=== PATIENT | female | born 1995 | race African-American/Black ===

== ENCOUNTER 2018-08-25 12:44 | Inpatient (IN) | payer MEDICAID ==
[~2018-08-25] VITALS: Ht 162.6 cm; Wt 56.8 kg
[~2018-08-25 12:44] MED LIST: LANTUS SOL100 UNIT/1 SC; NOVOLOG100 U/M1
[2018-08-25 13:43] LABS: BASOPHILS 0.3 % (0-2); EOSINOPHILS 0.1 % (0-7); HEMATOCRIT 37.7 % (36.0-48.0); HEMOGLOBIN 12.9 g/dL (12-16); IMMATURE GRANULOCYTES 0.2 % (0-5); LYMPHOCYTES 22.8 % (15-50); MCH 28.4 pg (26.0-34.0); MCHC 34.2 g/dL (31.0-37.0); MCV 82.9 fL (80.0-100.0); MEAN PLATELET VOLUME 9.5 fL (7.4-10.4); NEUTROPHILS 71.6 % (40-80); RBC 4.55 10x6/uL (4.00-5.40); RDW 12.5 % (11.5-14.5); WBC 9.1 10x3/uL (4.8-10.8)
[2018-08-25 13:57] LABS: KETONE - SERUM SMALL mg/dL (NEGATIVE)
[2018-08-25 13:59] LABS: HCG SERUM NEGATIVE (NEGATIVE)
[2018-08-25 14:00] LABS: APPEARANCE SL CLDY (CLEAR); BACTERIA FEW /hpf (NONE SEEN); BILIRUBIN NEGATIVE (NEGATIVE); COLOR YELLOW (YELLOW); EPITHELIAL CELLS 0-5 /hpf (0-5); GLUCOSE NEGATIVE (NEGATIVE); KETONE LARGE mg/dL (NEGATIVE); MUCUS <1+ /lpf (NONE SEEN); NITRITE NEGATIVE (NEGATIVE); PROTEIN 1+ mg/dL (NEGATIVE); SPECIFIC GRAVITY 1.015 (1.005-1.020); UROBILINOGEN NORMAL (NORMAL); WHITE CELLS - URINE 0-5 /hpf (0-5)
[2018-08-25 14:04] LABS: ALKALINE PHOSPHATASE 79 U/L (46-116); ALT (SGPT) 47 U/L (10-68); AMYLASE - SERUM 171 U/L (25-115); BILIRUBIN - TOTAL 0.97 mg/dL (0.2-1.3); CALCIUM 8.9 mg/dL (8.5-10.1); CARBON DIOXIDE 20.7 mmol/L (21.0-32.0); CHLORIDE - SERUM 102 mmol/L (98-107); CREATININE - SERUM 0.8 mg/dL (0.6-1.3); LIPASE 158 U/L (73-393); MAGNESIUM - SERUM 1.7 mg/dL (1.8-2.4); PROTEIN - SERUM 7.6 g/dL (6.4-8.2); SODIUM 141 mmol/L (136-145); UREA NITROGEN 17 mg/dL (7-18); eGFR NON AFRICAN AMERICAN > 90 mL/min (90-120)
[2018-08-25 14:05] LABS: PLATELET COUNT 341 10x3/uL (130-400)
[2018-08-25 14:07] LABS: CALC OSMOLALITY 286 mosm/kg (275-300); GLUCOSE 163 mg/dL (74-106)
[2018-08-25 14:08] LABS: POTASSIUM - SERUM 2.7 mmol/L (3.5-5.1)
[2018-08-25 14:21] VITALS: BP 115/72
[2018-08-25 15:17] VITALS: BP 110/71
--- NOTE | 2018-08-25 16:00 | NUR ---
" I FEEL ALOT BETTER" RESTING IN BED.
[2018-08-25 16:21] VITALS: BP 112/66
--- NOTE | 2018-08-25 17:17 | NUR ---
REPORT TO ALEXANDRA PALOMARES BY SBAR FORMAT
[2018-08-25 18:49] VITALS: BMI 21.5
[2018-08-25 20:13] LABS: UDS - AMPHET NEGATIVE QUAL (NEGATIVE); UDS - BARB NEGATIVE QUAL (NEGATIVE); UDS - BENZO NEGATIVE QUAL (NEGATIVE); UDS - COCAINE NEGATIVE QUAL (NEGATIVE); UDS - OPIATE POSITIVE QUAL (NEGATIVE); UDS - PCP NEGATIVE QUAL (NEGATIVE); UDS - THC POSITIVE QUAL (NEGATIVE)
--- NOTE | 2018-08-25 20:28 | NUR ---
PAGED DR FAJARDO D/T INCREASED NAUSEA. NEW ODER FOR COMPAZINE 10 MG IV Q6HP
--- NOTE | 2018-08-25 20:47 | NUR ---
potassium and levaquin complete
--- NOTE | 2018-08-25 23:10 | NUR ---
RECEIVED PT FROM ER VIA STRETCHER. PT YELLING AND GAGGING. ACCOMPANIED BY SIG OTHER. C/O ABD PAIN RATING 10. PT TESTED POSITIVE FOR OPIATES BUT DENIES USE. STATES SHE HAD BEEN AT [facility] TODAY AND STATES THEY GAVERHER MORPHINE. ADMITS TO USING LORAZEPAM FOR "NAUSEA". UNABLE TO RECALL PCP NAME AND STATES SHE HASNT SEEN A GI SPECIALIST. NS WTIH 20 MEQ KCL INFUSING @ 100 ML/HR TO LT AC WITHOUT DIFF. SR ELEVATED X2. CL IN REACH. PT YELLING AT STAFF ABOUT ASKING ABOUT OPIATE USEAGE. TELLS STAFF TO GET OUT OF HER FACE. NOTIFIED HOUSE MIR PEREZ OF DISRUPTIVE BEHAVIOR. INSTRUCTED PT TO STOP YELLING BECAUSE SHE IS BEING DISRUPTIVE TO OTHER PATIENTS.
--- NOTE | 2018-08-25 23:25 | NUR ---
PT MEDICATED WITH DEMEROL AND ZOFRAN FOR C/O ABD PAIN AND NAUSEA. CL IN REACH.
[2018-08-26] VITALS: BP 145/96
--- NOTE | 2018-08-26 02:19 | NUR ---
RESTING QUIETLY WITH EYES CLOSED. LYING ON LT SIDE IN BED. RESP EVEN AND NONLABORED. CL IN REACH. HAS RESTED WELL SINCE DEMEROL AND ZOFRAN GIVEN EARLIER.
--- NOTE | 2018-08-26 02:48 | NUR ---
WOKE UP GAGGING. MEDICATED WITH COMPAZINE ORDERED. CL IN REACH.
--- NOTE | 2018-08-26 06:00 | NUR ---
DRY HEAVING, WRETCHING. REQUESTS PAIN AND NAUSEA MED. MEDICATED WITH DEMEROL AND ZOFRAN ORDERED. SR ELEVATED X2. CL IN REACH. UNABLE TO TAKE PROTONIX PO DUE TO NAUSEA.
[2018-08-26 07:47] LABS: BASOPHILS 0.2 % (0-2); EOSINOPHILS 0.2 % (0-7); HEMOGLOBIN 11.2 g/dL (12-16); IMMATURE GRANULOCYTES 0.3 % (0-5); MCH 27.6 pg (26.0-34.0); MCHC 32.9 g/dL (31.0-37.0); MCV 83.7 fL (80.0-100.0); MEAN PLATELET VOLUME 9.4 fL (7.4-10.4); MONOCYTES 6.9 % (2-11); NEUTROPHILS 67.4 % (40-80); RBC 4.06 10x6/uL (4.00-5.40); RDW 12.2 % (11.5-14.5)
[2018-08-26 08:01] LABS: PLATELET COUNT 263 10x3/uL (130-400); WBC 6.5 10x3/uL (4.8-10.8)
--- NOTE | 2018-08-26 08:01 | NUR ---
AM ROUNDS- PT RESTING COMFORTABLY WITH HER EYES CLOSED, RESP EVEN AND NONLABORED ON RA. LT AC INFUSING NS +20KCL AT 100. BEDSIDE RAILS X2, CALL LIGHT IN REACH, NAD NOTED, WILL CONTINUE PLAN OF CARE.
[2018-08-26 08:11] LABS: CALC OSMOLALITY 283 mosm/kg (275-300); CALCIUM 7.8 mg/dL (8.5-10.1); CARBON DIOXIDE 20.4 mmol/L (21.0-32.0); CHLORIDE - SERUM 107 mmol/L (98-107); CREATININE - SERUM 0.6 mg/dL (0.6-1.3); GLUCOSE 210 mg/dL (74-106); MAGNESIUM - SERUM 1.6 mg/dL (1.8-2.4); PHOSPHOROUS 2.6 mg/dL (2.5-4.9); POTASSIUM - SERUM 3.7 mmol/L (3.5-5.1); SODIUM 140 mmol/L (136-145); eGFR NON AFRICAN AMERICAN > 90 mL/min (90-120)
[2018-08-26 08:15] LABS: UREA NITROGEN 11 mg/dL (7-18)
--- NOTE | 2018-08-26 08:54 | NUR ---
PT ASKING FOR PAIN AND NAUSEA MEDICATION. INFORMED PT THAT SHE CANNOT HAVE ANYTHING UNTIL AROUND 0950. PT VERBALIZED UNDERSTANDING. CALL LIGHT IN REACH, WILL CONTINUE TO MONITOR.
[2018-08-26 09:42] VITALS: BP 112/68
--- NOTE | 2018-08-26 10:16 | NUR ---
50MG OF DEMEROL GIVEN FOR PAIN LEVEL OF 8/10, ALSO GAVE 4MG OF ZOFRAN FOR NAUSEA. PT DENIES ANY OTHER NEEDS AT THIS TIME. CALL LIGHT IN REACH, NAD NOTED, WILL CONTINUE TO MONITOR.
--- NOTE | 2018-08-26 11:52 | NUR ---
BLOOD SUGAR OF 168, 2UNITS OF HUMALOG GIVEN PER S/S. ALSO GAVE REGLAN ORDERED. PT RESTING COMFORTABLY IN BED RATES PAIN LEVEL NOW 3/10. DENIES ANY NEEDS AT THIS TIME. CALL LIGHT IN REACH, NAD NOTED, WILL CONTINUE TO MONITOR.
--- NOTE | 2018-08-26 12:37 | NUR ---
PT ON LIGHT, SAYING SHE IS HURTING REALLY BAD, WANTS SOMETHING FOR PAIN. INFORMED PT THAT SHE CANNOT HAVE ANYTHING FOR PAIN UNTIL ABOUT 1400. CALLED [facility] CASTELLANO TO SEE IF PT COULD HAVE SOMETHING ELSE FOR PAIN. THAD STATED THAT THEY COULD NOT GIVE HER ANYTHING ELSE FOR PAIN. WILL NOTIFY PT.
[2018-08-26 13:29] VITALS: BP 143/102
[2018-08-26 14:32] VITALS: BMI 21.4
[2018-08-26 14:33] VITALS: BP 129/93
--- NOTE | 2018-08-26 19:30 | NUR ---
PT SITTING UP IN BED, ALERT AND ORIENTED. STATES PAIN IN ABD 10/10. WILL GIVE DEMEROL ORDERED. IV LEFT AC INFUSING NS W/ 20K @ 100. PT NAUSEAS, VOMITING YELLOW EMESIS. WILL GIVE ZOFRAN ORDERED. DENIES OTHER NEEDS. CL IN REACH, WILL CONT TO MONITOR
[2018-08-26 20:00] VITALS: BP 146/101
[2018-08-27] VITALS: BP 135/87
[2018-08-27 04:30] VITALS: BP 112/76
[2018-08-27 07:04] LABS: BASOPHILS 0.3 % (0-2); EOSINOPHILS 0 % (0-7); HEMATOCRIT 35.9 % (36.0-48.0); HEMOGLOBIN 12.1 g/dL (12-16); IMMATURE GRANULOCYTES 0.3 % (0-5); LYMPHOCYTES 20.7 % (15-50); MCH 27.8 pg (26.0-34.0); MCHC 33.7 g/dL (31.0-37.0); MCV 82.5 fL (80.0-100.0); MEAN PLATELET VOLUME 9.4 fL (7.4-10.4); NEUTROPHILS 73.7 % (40-80); PLATELET COUNT 272 10x3/uL (130-400); RBC 4.35 10x6/uL (4.00-5.40); RDW 11.8 % (11.5-14.5); WBC 6.2 10x3/uL (4.8-10.8)
[2018-08-27 07:27] LABS: ALBUMIN 3.1 g/dL (3.4-5.0); ALKALINE PHOSPHATASE 72 U/L (46-116); ALT (SGPT) 28 U/L (10-68); AMYLASE - SERUM 84 U/L (25-115); BILIRUBIN - TOTAL 0.59 mg/dL (0.2-1.3); CALC OSMOLALITY 277 mosm/kg (275-300); CALCIUM 8.1 mg/dL (8.5-10.1); CARBON DIOXIDE 15.7 mmol/L (21.0-32.0); CHLORIDE - SERUM 104 mmol/L (98-107); CREATININE - SERUM 0.6 mg/dL (0.6-1.3); GLUCOSE 214 mg/dL (74-106); LIPASE 114 U/L (73-393); POTASSIUM - SERUM 3.9 mmol/L (3.5-5.1); PROTEIN - SERUM 6.2 g/dL (6.4-8.2); SODIUM 137 mmol/L (136-145); UREA NITROGEN 7 mg/dL (7-18); eGFR NON AFRICAN AMERICAN > 90 mL/min (90-120)
--- NOTE | 2018-08-27 07:35 | NUR ---
INITIAL ROUNDING, PATIENT SLEEPING ON HER STOMACH, CALL LIGHT IN REACH
--- NOTE | 2018-08-27 08:45 | NUR ---
PATIENT CALLED TO REPORT HER IV SITE WAS "STINGING AND FEELS SWOLLEN". IV REMOVED FROM LEFT AC, CATH TIP IN TACT. ATTEMPTED TO START ANOTHER IV, UNSUCCESSFULL.
[2018-08-27 09:39] VITALS: BP 130/86
--- NOTE | 2018-08-27 10:14 | NUR ---
ALEXANDRA IYER FROM MED 2 STARTED NEW IV IN THE RIGHT AC, 20 G. PAIN MED GIVEN AT THIS TIME
[2018-08-27 12:53] VITALS: BP 123/72
[2018-08-27 16:57] VITALS: BP 135/97
--- NOTE | 2018-08-27 17:08 | MORECARE ---
CASE MANAGEMENT DISCHARGE SUMMARY PATIENT: SABINE BRODY UNIT: [id number] ADM DATE: 08/27/18 AGE: 23 : [birth year] SEX: F ROOM/BED: D.1209 AUTHOR: GLENN GE PHYSICIAN: REFERRING PHYSICIAN: FAITH FAJARDO MD DATE OF SERVICE: 08/27/18 Discharge Plan Patient Name: SABINE BRODY Facility: [facility]:[place] : 1995 Planned Disposition: Home Anticipated Discharge Date: Discharge Date: Expected LOS: Initial Reviewer: [email or web address] Initial Review Date: 08/27/2018 Generated: 08/27/18 6:08 pm Comments DCP- Discharge Planning Updated by [email or web address]: Odette Aguirre on 08/27/18 4:[address] Patient Name: SABINE BRODY Admission Status: ER Accout number: [id number] Admission Date: 08-27-2018 : 1995 Admission Diagnosis: Attending: FAITH FAJARDO Current LOS: 1 Anticipated DC Date: Planned Disposition: Home Primary Insurance: MEDICAID [place] Discharge Planning Comments: CM MET WITH PATIENT AND HER FAMILY. PATIENT STATES IS INDEPENDANT AND HAS NO NEEDS AT THIS TIME. STATES SHE IS HAVING AN EGD TODAY. CM WILL FOLLOW AND ASSIST NEEDED WITH DC PLANNING/NEEDS. Municipal Maintenance Worker: Odette Aguirre DCPIA - Discharge Planning Initial Assessment Updated by [email or web address]: Odette Aguirre on 08/27/18 5:06 pm * Is the patient Alert and Oriented? Yes * PCP PHAN * Pharmacy [facility] [address] * Preadmission Environment Home with Family * ADLs Independent * List name and contact numbers for known caregivers / representatives who currently or will assist patient after discharge: SANTANA QUINTERO, * Additional services required to return to the preadmission environment? No * Can the patient safely return to the preadmission environment? Yes * Has this patient been hospitalized within the prior 30 days at any hospital? No Patient Name: SABINE BRODY Page [phone] at 1708 All edits/amendments must be made on the electronic document DICTATION DATE: 05/02/19 1708 WHEEL AND AXLE INSPECTOR: ROSLYN 08/27/181707 RPT#: [id number] DC DATE: STATUS: ADM IN [facility] [address] [place] [address] END OF REPORT
[2018-08-27 20:00] VITALS: BP 129/91
--- NOTE | 2018-08-27 20:30 | NUR ---
RECIEVED PT BACK TO FLOOR FROM GI LAB. ALERT AND ORIENTED. WITHOUT DISTRESS. VSS. IV RIGHT AC INFUSING NS W/ 20K+ @ 100 AND ZOFRAN DRIP. STATES PAIN 7/10 IN ABD AT THIS TIME. STATES IT FEELS LIKE REFLUX. NAUSEAS, VOMITING CLEAR EMESIS. DENIES NEEDS AT THIS TIME. CL IN REACH, WILL CONT TO MONITOR
[2018-08-28] VITALS (15 sets, daily range): BP systolic 102–145; BP diastolic 72–95
--- NOTE | 2018-08-28 07:25 | NUR ---
PATIENT RESTING IN BED WITH EYES CLOSED, CALL LIGHT ON THE BED, IVF INFUSING, ON ROOM AIR.
[2018-08-28 07:42] LABS: HEMATOCRIT 41.9 % (36.0-48.0); HEMOGLOBIN 13.9 g/dL (12-16); MCH 28.2 pg (26.0-34.0); MCHC 33.2 g/dL (31.0-37.0); MEAN PLATELET VOLUME 9.8 fL (7.4-10.4); PLATELET COUNT 318 10x3/uL (130-400); RBC 4.93 10x6/uL (4.00-5.40); RDW 12.2 % (11.5-14.5)
[2018-08-28 07:57] LABS: WBC 10.5 10x3/uL (4.8-10.8)
[2018-08-28 08:10] LABS: ALBUMIN 3.8 g/dL (3.4-5.0); ALKALINE PHOSPHATASE 93 U/L (46-116); ALT (SGPT) 30 U/L (10-68); BILIRUBIN - TOTAL 0.67 mg/dL (0.2-1.3); CALC OSMOLALITY 270 mosm/kg (275-300); CALCIUM 8.7 mg/dL (8.5-10.1); CHLORIDE - SERUM 102 mmol/L (98-107); CREATININE - SERUM 0.7 mg/dL (0.6-1.3); GLUCOSE 240 mg/dL (74-106); PROTEIN - SERUM 7.1 g/dL (6.4-8.2); SODIUM 132 mmol/L (136-145); T4 THYROXIN - FREE 1.21 ng/dL (0.76-1.46); THYROID STIMULATING HORMONE 0.36 uIU/mL (0.36-3.74); UREA NITROGEN 8 mg/dL (7-18); eGFR NON AFRICAN AMERICAN > 90 mL/min (90-120)
[2018-08-28 08:11] LABS: POTASSIUM - SERUM 5.2 mmol/L (3.5-5.1)
[2018-08-28 08:12] LABS: CARBON DIOXIDE 7.9 mmol/L (21.0-32.0)
--- NOTE | 2018-08-28 08:42 | NUR ---
0822 SPOKE TO ELECTRIC RAZOR MECHANIC 8 WITH THE ANSWERING SERVICE, DR FAJARDO-PGED 0835 SPOKE TO ELECTRIC RAZOR MECHANIC 8 AGAIN, ASKED HER TO PAGE AGAIN, CRITICAL LABS TO REPORT
--- NOTE | 2018-08-28 08:57 | NUR ---
SPOKE TO DR HATFIELD, NEW ORDER TO CHANGE IVF TO NS, ORDER STAT BLOOD GASES AND CALL HIM WITH RESULTS
[2018-08-28 09:13] LABS: LYMPHOCYTES 15 % (15-50); MONOCYTES 5 % (2-11); NEUTROPHILS 78 % (40-80); PLATELET ESTIMATE NORMAL
--- NOTE | 2018-08-28 09:41 | NUR ---
DR MARTINEZ CALLED TO GET RESULTS OF ABG, NEW ORDER TO CONSULT DR CRENSHAW OR DR WHITE, DR SHARMA IS THE PULMONARY DOCTOR PLANT HEALTH MANAGER. HE WAS PAGED AT [phone]
--- NOTE | 2018-08-28 10:05 | NUR ---
PT RECIEVED FROM MED3 PT CRYING UNCONSOLABLY STATED IN PAIN DR FAJARDO AT BEDSIDE GIVEN UPDATE NEW ORDERS RECIEVED. OLAYINKA CALLED IN RADIOLOGY SCAN SCHEDULED FOR 1400.
--- NOTE | 2018-08-28 11:15 | NUR ---
REASSESSMENT COMPLETE PER FLOW SHEET. VSS. NO NEW CHANGES PT RESTING COMFORTABLY WILL CONTINUE TO MONTIOR
[2018-08-28 12:37] LABS: CALCIUM 8.8 mg/dL (8.5-10.1); CHLORIDE - SERUM 102 mmol/L (98-107); MAGNESIUM - SERUM 1.7 mg/dL (1.8-2.4); POTASSIUM - SERUM 4.6 mmol/L (3.5-5.1); SODIUM 134 mmol/L (136-145); UREA NITROGEN 7 mg/dL (7-18)
[2018-08-28 12:39] LABS: CALC OSMOLALITY 270 mosm/kg (275-300); CARBON DIOXIDE 12.5 mmol/L (21.0-32.0); CREATININE - SERUM 0.9 mg/dL (0.6-1.3); GLUCOSE 188 mg/dL (74-106); eGFR NON AFRICAN AMERICAN 84 mL/min (90-120)
--- NOTE | 2018-08-28 15:15 | NUR ---
REASSESSMENT COMPLET EPER FLOW SHEET. VSS. NO NEW CHANGES WILL CONTINUE TO MONITOR
--- NOTE | 2018-08-28 16:09 | NUR ---
PT TO RADIOLOGY AT THIS TIME. VSS DENIES NEEDS FAMILY GIVEN UDPATE. WILL CONTINUE TO MONITOR
[2018-08-28 16:39] LABS: CALCIUM 8.8 mg/dL (8.5-10.1); CHLORIDE - SERUM 105 mmol/L (98-107); CREATININE - SERUM 0.9 mg/dL (0.6-1.3); MAGNESIUM - SERUM 1.7 mg/dL (1.8-2.4); SODIUM 137 mmol/L (136-145); UREA NITROGEN 6 mg/dL (7-18); eGFR NON AFRICAN AMERICAN 84 mL/min (90-120)
[2018-08-28 16:41] LABS: CALC OSMOLALITY 272 mosm/kg (275-300); GLUCOSE 123 mg/dL (74-106); POTASSIUM - SERUM 3.9 mmol/L (3.5-5.1)
--- NOTE | 2018-08-28 17:44 | NUR ---
PT BACK FROM RADIOLOGY VSS PAIN MEDS ADM. NO FAMILY IN WAITING AREA. WILL CONTINUE TO MONITOR
--- NOTE | 2018-08-28 19:00 | NUR ---
REPORT RECEIVED INITIAL ASSESSMENT COMPLETED. RECEIVED PT IN BED WITH SPOUSE AT BEDSIDE. PT C/O PAIN TO ABD AND REQUESTING PAIN MEDICATION. INFORMED IT WAS TOO EARLY PT AND SPOUSE VERBALIZED UNDERSTANDING. PT ORIENTED X4. ON CM READING ST WITHOUT ECTOPY AT THIS TIME, ALARMS ON AND AUDIBLE. RESP EVEN AND NONLABORED WITH BREATH SOUNDS CLEAR TO AUSCULTATE. O2 SAT 97% ON ROOM AIR. NO GALE PT STATES SHE HAS GOTTEN UP TO URINATE EARLIER DOES NOT NEED TO AT THIS TIME WILL ASSESS URINE AT THAT TIME. SKIN W/D RIGHT AC PIV PATENT BUT POSITIONAL CAUSING IV PUMP TO ALARM WITH MINIMAL MOVEMEMENT OR BEND OF ARM SEE IV FLOWSHEET AND EMAR FOR FLUIDS/DRIPS. SIDE RAILS UP X2 CALL LIGHT IN REACH BED LOW POSITION.
--- NOTE | 2018-08-28 19:30 | NUR ---
DR MARTINEZ HERE ABG ORDERED INFORMED [place] [employer] RESP THERAPIST
--- NOTE | 2018-08-28 19:40 | NUR ---
ABG RESULT TO DR MARTINEZ STILL ON UNIT NO NEW ORDERS AT THIS TIME.
--- NOTE | 2018-08-28 19:50 | NUR ---
DR FIELDS HERE SPEAKING WITH DR MARTINEZ NO NEW ORDERS AT THIS TIME.
[2018-08-28 20:00] LABS: ANION GAP 17.3 mmol/L (8-16); CALCIUM 8.4 mg/dL (8.5-10.1); CARBON DIOXIDE 17.2 mmol/L (21.0-32.0); MAGNESIUM - SERUM 1.7 mg/dL (1.8-2.4); POTASSIUM - SERUM 3.5 mmol/L (3.5-5.1)
--- NOTE | 2018-08-28 20:00 | NUR ---
PT C/O PAIN AND N/V. PT ON ZOFRAN GTT BUT STILL NAUSEATED AND REQUESTING PAIN MEDICATION. INFORMED UNABLE TO GIVE PAIN MEDICINE ITS TOO EARLY BUT SOON ABLE WILL MEDICATE. PT AND SPOUSE VERBALIZE UNDERSTANDING
--- NOTE | 2018-08-28 20:15 | NUR ---
DR CARROLL PAGED INFORMED OF NAUSEA AND VOMITING DESPITE ZOFRAN GTT. ORDERS FOR PHENEGRAN PRN OBTAINED. ALSO READ SCAN REPORT SHOWING BILIARY DYSKINESIA SHE STATED TO CONSULT SURGERY TOMORROW FOR BILIARY DYSKINESIA.
--- NOTE | 2018-08-28 20:30 | NUR ---
NO N/V AT THIS TIME PT THINKS SHE HAD VOMITED ALL THE ENSURE SHE HAD TO DRINK FOR THE PIPIDA SCAN.
--- NOTE | 2018-08-28 20:50 | NUR ---
DR CARROLL ON UNIT INFORMED DID NOT GIVE PROMETHAZINE PT NO LONGER VOMITING AND ZOFRAN WORKING WITH NAUSEA, AND CLARIFIED THAT SHE DID NOT WANT ME TO CONSULT SURGERY TONIGHT. SHE STATED NO TO CONSULT SURGEON SWITCH CLEANER TOMORROW.
--- NOTE | 2018-08-28 21:50 | NUR ---
WHILE LOOKING FOR SITE FOR IV SINCE RIGHT AC CAUSING PUMP ALARM FROM BEND POSITIONING NOTICED MULTIPLE SUPERFICIAL LACERATIONS IN HEALING STAGES SCABBED OVER TO LEFT INNER ARM. PT STATES THEY ARE FROM "CUTTING" PT DID NOT STATES WHEN BUT STATES SHE HAS BEEN "CUTTING" FOR A LONG TIME AND THAT THESE WERE RECENT IN LAST MONTH. WILL PASS THIS ON IN REPORT SO PHYSICIANS CAN BE MADE AWARE.
--- NOTE | 2018-08-28 22:00 | NUR ---
IV PUMPS ALARMING OFTEN WITH BEING IN PTS AC. ANYTIME PT MOVES CAUSES IV ALARM OCCLUSION PT SIDE. PIV TO LEFT FOREARM 20 GUAGE BY WENDIE WITH 2 ATTEMPTS. RIGHT AC STILL PATENT JUST POSITIONAL WITH BEND OF ARM.
--- NOTE | 2018-08-28 22:10 | NUR ---
PT C/O PAIN TO ABD SEVERE.PT HAS DEMEROL 25 MG ORDERED IV Q4 HOURS. MEDICATED PT WITH 12.5 MG SINCE SHE HAS ALREADY BEEN VOMITING WITH ZOFRAN GTT. ALSO SPOKE AT LENGTH WITH PATIENT IF 12.5 MG ACTUALLY WORKS FOR PAIN MAY NOT CAUSE INCREASE NAUSEA AND CAN HAVE ANOTHER 12.5 MG DOSE IN 2 HOURS.. PT VERBALIZES GOOD UNDERSTANDING. ALSO TOLD PT TO LET ME KNOW IF 12.5 MG DID NOT WORK AT ALL.
--- NOTE | 2018-08-28 22:45 | NUR ---
PT STATED THE 12.5 MG DEMEROL DID WORK AND VERBALIZES UNDERSTANDING TO CALL NURSE WHEN SHE NEEDS PAIN MEDICATION
--- NOTE | 2018-08-28 23:00 | NUR ---
REASSESSMENT COMPLETE PT RESTING QUIETLY WITH EYES CLOSED AWAKENS EASILY TO VERBAL STIMULI. SEE ASSESSMENT FLOWSHEET. PT STATES NAUSEA AND PAIN CONTROLLED AT THIS TIME. CONTINUE PLAN OF CARE CALL LIGHT IN REACH NO DISTRESS NOTED AT THIS TIME.
[2018-08-29] VITALS (11 sets, daily range): BP systolic 102–137; BP diastolic 63–99; Ht 162.6 cm; Wt 56.8 kg
--- NOTE | 2018-08-29 01:00 | NUR ---
CPOC PT DENIES NEEDS AT THIS TIME VSS WILL CONTINUE TO MONITOR
--- NOTE | 2018-08-29 01:00 | NUR ---
PT RESTING QUIETLY EYES CLOSED VSS NO DISTRESS NOTED
[2018-08-29 03:14] LABS: BASOPHILS 0.4 % (0-2); EOSINOPHILS 0.6 % (0-7); HEMATOCRIT 36.7 % (36.0-48.0); HEMOGLOBIN 12.7 g/dL (12-16); IMMATURE GRANULOCYTES 0.3 % (0-5); LYMPHOCYTES 36.4 % (15-50); MCHC 34.6 g/dL (31.0-37.0); MEAN PLATELET VOLUME 9.3 fL (7.4-10.4); MONOCYTES 8.3 % (2-11); PLATELET COUNT 334 10x3/uL (130-400); RBC 4.54 10x6/uL (4.00-5.40); RDW 11.9 % (11.5-14.5)
[2018-08-29 03:16] LABS: MCV 80.8 fL (80.0-100.0); WBC 7.7 10x3/uL (4.8-10.8)
--- NOTE | 2018-08-29 03:27 | NUR ---
PT C/O PAIN MEDICATED WITH DEMEROL 12.5 MG
[2018-08-29 03:40] LABS: ALBUMIN 3.1 g/dL (3.4-5.0); ALKALINE PHOSPHATASE 72 U/L (46-116); BILIRUBIN - TOTAL 0.72 mg/dL (0.2-1.3); CALCIUM 8.1 mg/dL (8.5-10.1); CARBON DIOXIDE 18.4 mmol/L (21.0-32.0); CHLORIDE - SERUM 107 mmol/L (98-107); CREATININE - SERUM 0.8 mg/dL (0.6-1.3); LIPASE 166 U/L (73-393); POTASSIUM - SERUM 3.2 mmol/L (3.5-5.1); PRO BNP 55 pg/mL (0-125); PROTEIN - SERUM 6.2 g/dL (6.4-8.2); SODIUM 138 mmol/L (136-145); UREA NITROGEN 10 mg/dL (7-18); eGFR NON AFRICAN AMERICAN > 90 mL/min (90-120)
[2018-08-29 03:41] LABS: ALT (SGPT) 17 U/L (10-68); AMYLASE - SERUM 121 U/L (25-115); CALC OSMOLALITY 276 mosm/kg (275-300); GLUCOSE 139 mg/dL (74-106)
--- NOTE | 2018-08-29 04:00 | NUR ---
DEMEROL EFFECTIVE PT RESTING QUIETLY WITH EYES CLOSED NO DISTRESS NOTED VSS
--- NOTE | 2018-08-29 06:47 | NUR ---
PT C/O NAUSEA AND ABD PAIN MEDICATED WITH DEMEROL AND PHENEGRAN PER PRN ORDER. STILL ONLY 12.5 MG DEMEROL
--- NOTE | 2018-08-29 07:15 | NUR ---
PT DENIES N/V AND PAIN RESOLVED
--- NOTE | 2018-08-29 08:34 | NUR ---
UP IN BED WATCHING TV AT THIS TIME. NO ACUTE DISTRESS NOTED. CALL LIGHT IN REACH. WILL CONTINUE PLAN OF CARE.
--- NOTE | 2018-08-29 10:33 | NUR ---
AT BEDSIDE. UPDATES PROVIDED. NO ACUTE DISTRESS NOTED. PT NOTED VOID VIA BEDSIDE TOILET. PROVIDED OWN SHAI CARE AND WAS ABLE TO TRANSFER SELF INDEPENDENTLY. NO ACUTE DISTRESS NOTED. WILL CONTINUE PLAN OF CARE.
--- NOTE | 2018-08-29 12:32 | NUR ---
PER DR FAJARDO, DC INSULIN GTT, CHANGE TO SLIDING SCALE Q4H, TRANSFER TO FLOOR. ALSO NOTED PT COMPLAINT OF EPIGASTRIC PAIN, NO NEW ORDERS RECIEVED. ALSO NOTED ORDER FOR CLEAR LIQUID DIET. WILL CONTINUE PLAN OF CARE.
--- NOTE | 2018-08-29 14:31 | NUR ---
UP IN BED RESTING AT THIS TIME. NO ACUTE DISTRESS NOTED. CALL LIGHT IN REACH. VSS. WILL CONTINUE PLAN OF CARE.
--- NOTE | 2018-08-29 16:53 | NUR ---
UP IN BED WATCHING TV AT THIS TIME. NO ACUTE DISTRESS NOTED. VSS. WILL CONTINUE PLAN OF CARE.
--- NOTE | 2018-08-29 18:23 | NUR ---
NOTED FOR PT TO GO TO ROOM 2220. REPORT CALLED TO RECIEVING NURSE. WILL TRANSFER PT SHORTLY.
--- NOTE | 2018-08-29 18:41 | NUR ---
PT TRANSFERRED TO 2229 AT THIS TIME VIA WHEELCHAIR WITH ALL PERSONAL ITEMS. NO ACUTE DISTRESS NOTED. NO FURTHER ACTIONS.
--- NOTE | 2018-08-29 19:15 | NUR ---
RECIEVED CARE FROM DAY NURSE. LYING IN BED WITH COMPANY AT SIDE. REPORTS NO NEEDS AT THIS TIME. CALL LIGHT AT SIDE. IV INFUSING PER ORDER TO PATENT LEFT FA.
--- NOTE | 2018-08-29 19:45 | NUR ---
DISCONNECTED FROM IV TO SHOWER AT THIS TIME.
[2018-08-30] VITALS (7 sets, daily range): BP systolic 100–126; BP diastolic 68–83
[2018-08-30 05:45] LABS: BASOPHILS 0.8 % (0-2); EOSINOPHILS 1.1 % (0-7); HEMATOCRIT 33.5 % (36.0-48.0); HEMOGLOBIN 11.4 g/dL (12-16); IMMATURE GRANULOCYTES 0.3 % (0-5); MCH 27.8 pg (26.0-34.0); MCV 81.7 fL (80.0-100.0); MEAN PLATELET VOLUME 9.3 fL (7.4-10.4); MONOCYTES 5.4 % (2-11); NEUTROPHILS 37.4 % (40-80); PLATELET COUNT 286 10x3/uL (130-400); WBC 6.2 10x3/uL (4.8-10.8)
[2018-08-30 05:56] LABS: ALBUMIN 2.9 g/dL (3.4-5.0); ALKALINE PHOSPHATASE 67 U/L (46-116); ALT (SGPT) 19 U/L (10-68); CALCIUM 8.4 mg/dL (8.5-10.1); CARBON DIOXIDE 20.2 mmol/L (21.0-32.0); CHLORIDE - SERUM 104 mmol/L (98-107); CREATININE - SERUM 0.8 mg/dL (0.6-1.3); POTASSIUM - SERUM 3.8 mmol/L (3.5-5.1); PROTEIN - SERUM 5.3 g/dL (6.4-8.2); SODIUM 135 mmol/L (136-145); eGFR NON AFRICAN AMERICAN > 90 mL/min (90-120)
[2018-08-30 05:58] LABS: CALC OSMOLALITY 280 mosm/kg (275-300); GLUCOSE 329 mg/dL (74-106); UREA NITROGEN 7 mg/dL (7-18)
--- NOTE | 2018-08-30 16:21 | NUR ---
I have reviewed this patient and I concur with the Shift Assessment completed by the Licensed Practical Nurse today this shift.
--- NOTE | 2018-08-31 01:18 | NUR ---
I have reviewed this patient and I concur with the Shift Assessment completed by the Licensed Practical Nurse today this shift.
[2018-08-31 03:45] VITALS: BP 117/78
[2018-08-31 05:54] LABS: BASOPHILS 0.5 % (0-2); EOSINOPHILS 1.6 % (0-7); HEMATOCRIT 33.6 % (36.0-48.0); HEMOGLOBIN 11.4 g/dL (12-16); IMMATURE GRANULOCYTES 0.2 % (0-5); LYMPHOCYTES 60.2 % (15-50); MCH 27.9 pg (26.0-34.0); MCHC 33.9 g/dL (31.0-37.0); MCV 82.2 fL (80.0-100.0); MEAN PLATELET VOLUME 9.5 fL (7.4-10.4); MONOCYTES 7.5 % (2-11); PLATELET COUNT 303 10x3/uL (130-400); RBC 4.09 10x6/uL (4.00-5.40); WBC 5.7 10x3/uL (4.8-10.8)
[2018-08-31 06:11] LABS: ALBUMIN 3.1 g/dL (3.4-5.0); ALKALINE PHOSPHATASE 65 U/L (46-116); ALT (SGPT) 18 U/L (10-68); BILIRUBIN - TOTAL 0.42 mg/dL (0.2-1.3); CALCIUM 8.4 mg/dL (8.5-10.1); CARBON DIOXIDE 25.2 mmol/L (21.0-32.0); CHLORIDE - SERUM 108 mmol/L (98-107); CREATININE - SERUM 0.8 mg/dL (0.6-1.3); POTASSIUM - SERUM 3.7 mmol/L (3.5-5.1); PROTEIN - SERUM 5.4 g/dL (6.4-8.2); SODIUM 142 mmol/L (136-145); UREA NITROGEN 7 mg/dL (7-18); eGFR NON AFRICAN AMERICAN > 90 mL/min (90-120)
[2018-08-31 06:14] LABS: CALC OSMOLALITY 285 mosm/kg (275-300); GLUCOSE 182 mg/dL (74-106)
[2018-08-31 08:42] VITALS: BP 127/79
--- NOTE | 2018-08-31 10:33 | NUR ---
PT RESTING QUIETLY IN BED, EYES CLOSED AND LIGHTS OFF. RESPIRATIONS EVEN AND UNLABORED. NPO STATUS MAINTAINED PREPROCEDURE TODAY. AM MEDS GIVEN WITH MINIMAL WATER. PAIN MEDICATION AND NAUSEA MEDICATION GIVEN AT REQUEST WITH AM MEDS. TOLERATED WELL. PVIC TO R AC, PATENT NON TENDER. NO SIGNS OF INFECTION OR INFILTRATION NOTED. CALL LIGHT AND BEDSIDE TABLE IN REACH. BED IN LOWEST POSTION. ROOM FREE OF CLUTTER. ALL NEEDS MET AT THIS TIME. WILL CONTINUE TO MONITOR.
--- NOTE | 2018-08-31 13:17 | NUR ---
DENIES NEEDS AT PRESENT. SHE IS WITHOUT DISTRESS.CALL LIGHT IN REACH
[2018-08-31 13:27] VITALS: BP 105/68
--- NOTE | 2018-08-31 14:37 | NUR ---
NUTRITION F/U PT CURRENTLY NPO, AWAITING PROCEDURE. WILL MONITOR DIET ADVANCEMENT WHEN RESUMED, PO INTAKE. RD FOLLOWING
[2018-08-31 18:36] VITALS: BP 115/81
--- NOTE | 2018-08-31 20:04 | NUR ---
TO OR VIA BED
[2018-09-01] VITALS (17 sets, daily range): BP systolic 94–162; BP diastolic 38–95
--- NOTE | 2018-09-01 04:23 | NUR ---
I have reviewed this patient and I concur with the Shift Assessment completed by the Licensed Practical Nurse today this shift.
[2018-09-01 05:06] LABS: BASOPHILS 0.1 % (0-2); EOSINOPHILS 0 % (0-7); HEMOGLOBIN 12.9 g/dL (12-16); IMMATURE GRANULOCYTES 0.5 % (0-5); LYMPHOCYTES 4.9 % (15-50); MCH 27.8 pg (26.0-34.0); MCHC 33.1 g/dL (31.0-37.0); MCV 84.1 fL (80.0-100.0); MEAN PLATELET VOLUME 9.7 fL (7.4-10.4); MONOCYTES 1.1 % (2-11); NEUTROPHILS 93.4 % (40-80); PLATELET COUNT 347 10x3/uL (130-400); RBC 4.64 10x6/uL (4.00-5.40)
[2018-09-01 05:28] LABS: WBC 12.4 10x3/uL (4.8-10.8)
[2018-09-01 05:46] LABS: BILIRUBIN - TOTAL 0.54 mg/dL (0.2-1.3); CALCIUM 9.2 mg/dL (8.5-10.1)
[2018-09-01 05:51] LABS: ALBUMIN 4.3 g/dL (3.4-5.0); ANION GAP 32.3 mmol/L (8-16); POTASSIUM - SERUM 4.3 mmol/L (3.5-5.1); PROTEIN - SERUM 7.3 g/dL (6.4-8.2)
[2018-09-01 08:09] LABS: ALBUMIN 3.5 g/dL (3.4-5.0); ALKALINE PHOSPHATASE 77 U/L (46-116); ALT (SGPT) 49 U/L (10-68); BILIRUBIN - TOTAL 0.37 mg/dL (0.2-1.3); CALCIUM 8.6 mg/dL (8.5-10.1); CHLORIDE - SERUM 107 mmol/L (98-107); CREATININE - SERUM 0.8 mg/dL (0.6-1.3); PROTEIN - SERUM 6.4 g/dL (6.4-8.2); SODIUM 139 mmol/L (136-145); UREA NITROGEN 11 mg/dL (7-18); eGFR NON AFRICAN AMERICAN > 90 mL/min (90-120)
[2018-09-01 08:10] LABS: CALC OSMOLALITY 281 mosm/kg (275-300); CARBON DIOXIDE 13.7 mmol/L (21.0-32.0); GLUCOSE 186 mg/dL (74-106)
[2018-09-01 09:06] LABS: APPEARANCE CLEAR (CLEAR); BILIRUBIN NEGATIVE (NEGATIVE); COLOR STRAW (YELLOW); GLUCOSE 1000 mg/dL (NEGATIVE); KETONE LARGE mg/dL (NEGATIVE); NITRITE NEGATIVE (NEGATIVE); PROTEIN NEGATIVE (NEGATIVE); UROBILINOGEN NORMAL (NORMAL)
[2018-09-01 09:08] LABS: BACTERIA FEW /hpf (NONE SEEN); EPITHELIAL CELLS 0-5 /hpf (0-5); MUCUS <1+ /lpf (NONE SEEN); RED CELLS - URINE 0-5 /hpf (0-5); WHITE CELLS - URINE 0-5 /hpf (0-5)
[2018-09-01 13:31] LABS: CALC OSMOLALITY 277 mosm/kg (275-300); CALCIUM 8.4 mg/dL (8.5-10.1); CARBON DIOXIDE 14.1 mmol/L (21.0-32.0); CHLORIDE - SERUM 105 mmol/L (98-107); CREATININE - SERUM 0.9 mg/dL (0.6-1.3); GLUCOSE 195 mg/dL (74-106); MAGNESIUM - SERUM 1.6 mg/dL (1.8-2.4); PHOSPHOROUS 3.8 mg/dL (2.5-4.9); SODIUM 137 mmol/L (136-145); UREA NITROGEN 10 mg/dL (7-18); eGFR NON AFRICAN AMERICAN 84 mL/min (90-120)
--- NOTE | 2018-09-01 14:08 | NUR ---
1030 pt recieved in the icu from the floor via wheelchair.. pt is awake and alert ambulated to the bed.. c/o abdominal pain , piv in right ac with ns infusing at kvo rate is increased to 50cc at this time.. fsbs done 121 1035 demerol iv given for c/o abdominal pain.. 1105 pt is resting more comfortably at this time 1135 fsbs done 126 1200 without visitor at this time.. 1245 dr gibbs in to see pt.. update is given and putting in orders .. 1310 lab here to draw bmp 1330 family in to see pt.. update given and pt using bsc, voidsed yellow urine 1400 lab results in and pharmacy called re insulin drip.. anion gap remains high 21.9
--- NOTE | 2018-09-01 15:00 | NUR ---
1430 C/O PAIN DEMEROL GIVEN IV, INSULIN GTT INITIATED AT 8.31 CC/UNITS INSULIN AND INFUSING. D5NS STARTED AT 50CC/HR ORDERED..
[2018-09-01 15:11] LABS: OVA + PARASITE EXAM Final report (())
--- NOTE | 2018-09-01 17:28 | NUR ---
1530 SLEEPING AT THIS TIME.. 1600 FAMILY MEMBER AT THE BEDSIDE.. CONTINUE TO MONITOR BLOOD SUGAR AND ADJUST INSULIN NECESSARY 1730 PT IS CONVERSING WITH FAMILY WITHOUT OTHER CHANGES
--- NOTE | 2018-09-01 19:10 | NUR ---
REC'D TO CARE, HUMAN RESOURCES OFFICE MANAGER PER FLOWSHEET. PT AWAKENS EASILY, COOPERATIVE, VSS. ON INSULIN GTT VIA R AC PIV, DSG C/D/I - SEE FLOWSHEET. WILL TITRATE PER MD ORDERS. ABD WITH LAP INCISIONS STERI-STRIPS NOTED C/D/I. ALARMS ON. PT DENIES NEEDS AT THIS TIME. C/L IN REACH.
[2018-09-01 20:11] LABS: CALCIUM 8.2 mg/dL (8.5-10.1); CHLORIDE - SERUM 107 mmol/L (98-107); CREATININE - SERUM 0.8 mg/dL (0.6-1.3); SODIUM 138 mmol/L (136-145); UREA NITROGEN 9 mg/dL (7-18); eGFR NON AFRICAN AMERICAN > 90 mL/min (90-120)
[2018-09-01 20:15] LABS: CALC OSMOLALITY 272 mosm/kg (275-300); CARBON DIOXIDE 19.7 mmol/L (21.0-32.0); GLUCOSE 71 mg/dL (74-106); POTASSIUM - SERUM 3.2 mmol/L (3.5-5.1)
--- NOTE | 2018-09-01 21:00 | NUR ---
PT UP TO BSC INDEPENDENTLY. FIANCE AT BS. UPDATE GIVEN AND QUESTIONS ANSWERED.
--- NOTE | 2018-09-01 23:00 | NUR ---
REASSESSMENT PER FLOWSHEET, NO ACUTE CHANGES. PT RESTING QUIETLY. CONT Q1H FSBS - SEE FLOWSHEET. PT BACK TO REST EASILY.
[2018-09-02] VITALS (22 sets, daily range): BP systolic 100–133; BP diastolic 70–102
--- NOTE | 2018-09-02 01:00 | NUR ---
RESTING WITH EYES CLOSED, NO SIGN OF DISTRESS.
--- NOTE | 2018-09-02 03:05 | NUR ---
REASSESSMENT PER FLOWSHEET. NO ACUTE CHANGES. PT C/O ABD PAIN - PRN DEMEROL GIVEN - SEE FLOWSHEET. C/L IN REACH.
--- NOTE | 2018-09-02 05:15 | NUR ---
RESTING QUIETLY, CONT INSULIN GTT PER ORDERS. VSS.
[2018-09-02 05:27] LABS: BASOPHILS 0.2 % (0-2); EOSINOPHILS 0.7 % (0-7); HEMOGLOBIN 10.8 g/dL (12-16); IMMATURE GRANULOCYTES 0.2 % (0-5); LYMPHOCYTES 39.7 % (15-50); MCH 28.6 pg (26.0-34.0); MCHC 35.1 g/dL (31.0-37.0); MEAN PLATELET VOLUME 9.5 fL (7.4-10.4); MONOCYTES 6.1 % (2-11); NEUTROPHILS 53.1 % (40-80); PLATELET COUNT 306 10x3/uL (130-400); RBC 3.77 10x6/uL (4.00-5.40); RDW 12.4 % (11.5-14.5)
[2018-09-02 05:39] LABS: ALBUMIN 2.9 g/dL (3.4-5.0); ALKALINE PHOSPHATASE 62 U/L (46-116); ALT (SGPT) 39 U/L (10-68); BILIRUBIN - TOTAL 0.38 mg/dL (0.2-1.3); CALC OSMOLALITY 276 mosm/kg (275-300); CALCIUM 7.8 mg/dL (8.5-10.1); CARBON DIOXIDE 19.1 mmol/L (21.0-32.0); CHLORIDE - SERUM 107 mmol/L (98-107); CREATININE - SERUM 0.8 mg/dL (0.6-1.3); GLUCOSE 91 mg/dL (74-106); POTASSIUM - SERUM 3.1 mmol/L (3.5-5.1); PROTEIN - SERUM 5.5 g/dL (6.4-8.2); SODIUM 140 mmol/L (136-145); UREA NITROGEN 7 mg/dL (7-18); eGFR NON AFRICAN AMERICAN > 90 mL/min (90-120)
[2018-09-02 05:46] LABS: HEMATOCRIT 30.8 % (36.0-48.0); MCV 81.7 fL (80.0-100.0); WBC 9.1 10x3/uL (4.8-10.8)
--- NOTE | 2018-09-02 07:15 | NUR ---
REPORT RECEIVED. PT ALERT AND ORIENTED. POD 2 LAP AWA. 4 INC SITES STERI STRIPS INTACT. PT ON INSULIN DRIP. HEAD TO TOE ASSESSMENT PERFORMED. IV RIGHT AC. PT ASSISTED TO BSC. VSS. NO COMPLAINTS OR NEEDS AT THIS TIME.
--- NOTE | 2018-09-02 09:16 | NUR ---
PT RESTING QUIETLY. VSS. ADJUSTING INSULIN PER PROTOCOL. NO NEEDS AT THIS TIME.
--- NOTE | 2018-09-02 10:40 | NUR ---
Nutrition follow-up: Pt now in ICU 2/2 DKA on insulin drip Diet: ADA consistent CHO POD 2 lap sánchez Wt: 126# Unsure of po intake and pt sleeping at this time. RDN following.
--- NOTE | 2018-09-02 11:17 | NUR ---
PT RESTING. VSS. INSULIN DRIP, ZOFRAN DRIP, D5NS INFUSING. NO NEEDS AT THIS TIME.
--- NOTE | 2018-09-02 13:39 | NUR ---
PT RESTING QUIETLY. NO COMPLAINTS OR NEEDS AT THIS TIME. INSULIN DRIP ADJUSTED PER PROTOCOL.
--- NOTE | 2018-09-02 15:45 | NUR ---
DOCTOR OKAYED PT BEING ABLE TO EAT DIABETIC DIET. PT TO STAY ON INSULIN DRIP. VSS. WILL CONTINUE TO MONITOR.
--- NOTE | 2018-09-02 17:30 | NUR ---
PT ATE DINNER. ADJUSTING INSULIN DRIP PER PROTOCOL AND BLOOD SUGARS. VSS. NO OTHER NEEDS AT THIS TIME.
--- NOTE | 2018-09-02 19:48 | NUR ---
PT RECEIVED WITH EYES OPEN. TENDER TO RIGHT ABDOMEN FROM RECENT SURGERY DUE TO COUGH. CALL LIGHTIN REACH. ON INSULIN DRIP WITH PROTOCOL BEING FOLLOWED. WATER PROVIDED. NEXT PAIN MEDICATION DUE 1999. WILL CONTINUE TO OBSERVE.
--- NOTE | 2018-09-02 21:25 | NUR ---
PT WITH EYES OPEN ALERT AND ORIENTED, CONTINUES INSULIN DRIPS W/Q1HR FSBS. FLOW RATE ADJUSTED PER PROTOCOL. NO COMPLAINTS AT THIS TIME. WILL CONTINUE TO OBSERVE.
--- NOTE | 2018-09-02 23:36 | NUR ---
REASSESSMENT COMPLETED, SEE FLOW SHEET. CONTINUES INSULIN DRIP CONTINUES. SUGERROBI URBINA GIVEN PER REQUEST. CALL LIGHT IN REACH. WILL CONTINUE TO OBSERVE.
[2018-09-03] VITALS (16 sets, daily range): BP systolic 92–132; BP diastolic 61–101
--- NOTE | 2018-09-03 00:23 | NUR ---
PT COMPLAINS OF PAIN WITH PRN PAIN MEDICATIONS GIVEN AFTER PT TO BEDSIDE COMMODE. OBSERVATION ONLY WITH TRANSFER NEEDED. CONTINUES INSULIN DRIP PROTOCOL. WILL CONTINUE TO OBSERVE.
--- NOTE | 2018-09-03 01:23 | NUR ---
PT CONTINUES INSULIN DRIP PROTOCOLS. PT SLEEPING WHEN CAN. EASILY AWOKEN TO VERBAL STIMULI. CALL LIGHT IN REACH. WILL CONTINUE TO OBSERVE.
--- NOTE | 2018-09-03 03:11 | NUR ---
REASSESSMENT COMPLETED, SEE FLOW SHEET. EASILY AWOKEN TO VERBAL STIMUILI. CALL LIGHT IN REACH. WILL CONTINUE TO OBSERVE.
[2018-09-03 04:29] LABS: BASOPHILS 0.3 % (0-2); EOSINOPHILS 1.4 % (0-7); HEMATOCRIT 31.1 % (36.0-48.0); HEMOGLOBIN 10.6 g/dL (12-16); IMMATURE GRANULOCYTES 0.3 % (0-5); LYMPHOCYTES 52.1 % (15-50); MCH 27.9 pg (26.0-34.0); MCHC 34.1 g/dL (31.0-37.0); MCV 81.8 fL (80.0-100.0); MEAN PLATELET VOLUME 9.6 fL (7.4-10.4); MONOCYTES 7.1 % (2-11); NEUTROPHILS 38.8 % (40-80); PLATELET COUNT 281 10x3/uL (130-400); RDW 12.3 % (11.5-14.5)
[2018-09-03 04:35] LABS: WBC 6.3 10x3/uL (4.8-10.8)
[2018-09-03 04:58] LABS: ALBUMIN 2.7 g/dL (3.4-5.0); ALKALINE PHOSPHATASE 61 U/L (46-116); ALT (SGPT) 33 U/L (10-68); BILIRUBIN - TOTAL 0.19 mg/dL (0.2-1.3); CALC OSMOLALITY 282 mosm/kg (275-300); CALCIUM 7.9 mg/dL (8.5-10.1); CHLORIDE - SERUM 109 mmol/L (98-107); CREATININE - SERUM 0.6 mg/dL (0.6-1.3); GLUCOSE 101 mg/dL (74-106); MAGNESIUM - SERUM 1.6 mg/dL (1.8-2.4); POTASSIUM - SERUM 3.4 mmol/L (3.5-5.1); PROTEIN - SERUM 5.1 g/dL (6.4-8.2); SODIUM 143 mmol/L (136-145); UREA NITROGEN 6 mg/dL (7-18); eGFR NON AFRICAN AMERICAN > 90 mL/min (90-120)
[2018-09-03 04:59] LABS: CARBON DIOXIDE 27.1 mmol/L (21.0-32.0)
--- NOTE | 2018-09-03 05:50 | NUR ---
PT CONTINUES INSULIN DRIP PROTOCOLS. PT SLEEPING AND EASILY AWOKEN TO VERBAL STIMULI. NO CONCERNS NOTED AT THIS TIME. WILL CONTINUE TO OBSERVE.
--- NOTE | 2018-09-03 07:15 | NUR ---
REPORT RECEIVED. PT ALERT AND ORIENTED. ON INSULIN DRIP. CURRENTLY ON 2.2 UNITS/HR. WILL ADJUST RATES AND CHECK BLOOD SUGARS PER PROTOCOL. PT HAS IV IN RIGHT AC. PT ALSO HAS ZOFRAN DRIP. HEAD TO TOE ASSESSMENT DONE. PT STATES ABD DOES HURT. NOT YET TIME FOR PAIN MEDICATION. 4 LAP SITES TO ABD FROM LAP AWA DONE ON 08/31. PT HAS NO COMPLAINTS OR NEEDS AT THIS TIME. WILL CONTINUE TO MONITOR. CALL LIGHT IN REACH.
--- NOTE | 2018-09-03 09:30 | NUR ---
PT RESTING QUIETLY. VSS. NO COMPLAINTS OR NEEDS AT THIS TIME. WILL CONTINUE TO MONITOR.
--- NOTE | 2018-09-03 11:52 | NUR ---
BLOOD SUGAR Q1H D/C PER DR TUBBS. INSULIN DRIP STOPPED. BLOOD SUGAR 88. TRANSFER ORDERS TO THE FLOOR.
--- NOTE | 2018-09-03 12:56 | NUR ---
ATTEMPTED TO CALL REPORT TO MED 2. STATED NURSE COULDN'T TAKE IT AT THIS TIME.
--- NOTE | 2018-09-03 13:35 | NUR ---
PT ON THE FLOOR, CAME FROM ICU VIA WHEELCHAIR. NO NEEDS AT THIS TIME CALL LIGHT WITHIN REACH BED IN LOWEST POSITION.
--- NOTE | 2018-09-03 20:13 | NUR ---
EVENING ROUNDS COMPLETED. REPORT RECEIVED. PT SITTING UP IN BED WITH EYES OPEN, RR EVEN AND UNLABORED. NO S/S OF DISTRESS. INTRODUCED SELF TO PT. PT DENIES FURTHER NEEDS AT THIS TIME. PT STATES PAIN MEDICATION HAS BEEN EFFECTIVE. FAMILY AT BEDSIDE. CALL LIGHT IN REACH.
--- NOTE | 2018-09-04 03:31 | NUR ---
I have reviewed this patient and I concur with the Shift Assessment completed by the Licensed Practical Nurse today this shift.
[2018-09-04 04:00] VITALS: BP 117/76
--- NOTE | 2018-09-04 07:11 | NUR ---
PT AWAKE AND ORIENTED WATCHING HER PHONE. NO COMPLAINTS OR CONCERNS VOICED AT THIS TIME. CL IN REACH,S RX2
[2018-09-04 07:56] VITALS: BP 116/82
[2018-09-04 11:37] VITALS: BP 129/94
[2018-09-04] MEDS ORDERED: PROTONIX40 MG PO (11:38)
[2018-09-04] MEDS ORDERED: CLARITHROMYCIN500 M1 PO (11:38)
[2018-09-04] MEDS ORDERED: AMOXICILLIN500 M1 PO (11:38)
[2018-09-04] MEDS ORDERED: DIFLUCAN200 MG PO (11:39)
--- NOTE | 2018-09-04 13:24 | MORECARE ---
CASE MANAGEMENT DISCHARGE SUMMARY PATIENT: SABINE BRODY UNIT: [id number] ADM DATE: 08/27/18 AGE: 23 : [birth year] SEX: F ROOM/BED: D.2110 AUTHOR: GLENN GE PHYSICIAN: REFERRING PHYSICIAN: FAITH FAJARDO MD DATE OF SERVICE: 09/04/18 Discharge Plan Patient Name: SABINE BRODY Facility: [facility]:[place] : 1995 Planned Disposition: Home Anticipated Discharge Date: 09/04/18 Discharge Date: Expected LOS: 8 Initial Reviewer: [email or web address] Initial Review Date: 08/27/2018 Generated: 09/04/18 2:24 pm DCP- Discharge Planning Updated by [email or web address]: Odette Aguirre on 08/27/18 4:[address] Patient Name: SABINE BRODY Admission Status: ER Accout number: [id number] Admission Date: 08-27-2018 : 1995 Admission Diagnosis: Attending: FAITH FAJARDO Current LOS: 1 Anticipated DC Date: Planned Disposition: Home Primary Insurance: MEDICAID [place] Discharge Planning Comments: CM MET WITH PATIENT AND HER FAMILY. PATIENT STATES IS INDEPENDANT AND HAS NO NEEDS AT THIS TIME. STATES SHE IS HAVING AN EGD TODAY. CM WILL FOLLOW AND ASSIST NEEDED WITH DC PLANNING/NEEDS. Artist And Repertoire Manager: Odette Aguirre DCPIA - Discharge Planning Initial Assessment Updated by [email or web address]: Odette Aguirre on 08/27/18 5:06 pm * Is the patient Alert and Oriented? Yes * PCP PHAN * Pharmacy [facility] [address] * Preadmission Environment Home with Family * ADLs Independent * List name and contact numbers for known caregivers / representatives who currently or will assist patient after discharge: SANTANA QUINTERO, * Additional services required to return to the preadmission environment? No * Can the patient safely return to the preadmission environment? Yes * Has this patient been hospitalized within the prior 30 days at any hospital? No Last DP export: 08/27/18 4:08 pm Patient Name: SABINE BRODY Page [id number] at [id number] All edits/amendments must be made on the electronic document DICTATION DATE: 09/04/181323 TECHNICAL ASSISTANCE CONSULTANT: ROSLYN 09/04/181323 RPT#: [id number] DC DATE: STATUS: ADM IN [facility] [address] [place] [address] END OF REPORT
[2018-09-04] MEDS ORDERED: PREVPACK (13:37)
--- NOTE | 2018-09-04 14:09 | NUR ---
I have reviewed this patient and I concur with the Shift Assessment completed by the Licensed Practical Nurse today this shift.
--- NOTE | 2018-09-04 14:48 | NUR ---
PT AMBULATED OUT PER REQUEST. OFFERED WHEELCHAIR, PT REFUSED. AND BABY AT SIDE.
[2018-09-04 18:07] LABS: AEROBE ID Final report (())
== END 2018-09-04 14:49 | disposition home or self-care (01) | DRG 417 ==
LOC: D.ER 12:44 → D.M3 15:26 → D.EDHOLD 15:26 → OBSVTIME 15:26 → D.EDHOLD 15:26 → D.M3 22:05 → D.MS 08-27 12:05 → D.ICU 08-27 12:05 → D.M3 08-27 12:05 → D.ICU 08-28 10:19 → D.MS 08-29 18:53 → D.ICU 09-01 10:30 → D.MS 09-01 10:30 → D.ICU 09-03 13:30 → D.M2 09-03 13:30 → D.ICU 09-04 14:49
PROVIDERS: Family Medicine; Internal Medicine Gastroenterology; Internal Medicine Nephrology; Surgery; ADMIT Family Medicine; ATTEND Family Medicine
PROC: 0DB98ZX Excision of Duodenum, Via Natural or Artificial Opening Endoscopic, Diagnostic (ICD-10-PCS; 2018-08-27)
PROC: 0DB78ZX Excision of Stomach, Pylorus, Via Natural or Artificial Opening Endoscopic, Diagnostic (ICD-10-PCS; 2018-08-27)
PROC: 0DB38ZX Excision of Lower Esophagus, Via Natural or Artificial Opening Endoscopic, Diagnostic (ICD-10-PCS; 2018-08-27)
PROC: 0FT44ZZ Resection of Gallbladder, Percutaneous Endoscopic Approach (ICD-10-PCS; principal; 2018-08-31 13:45)
DX: K82.8 Other specified diseases of gallbladder (principal); E10.10 Type 1 diabetes mellitus with ketoacidosis without coma; K22.10 Ulcer of esophagus without bleeding; B37.49 Other urogenital candidiasis; Z79.4 Long term (current) use of insulin; F32.9 Major depressive disorder, single episode, unspecified; E87.6 Hypokalemia; E83.42 Hypomagnesemia; K29.00 Acute gastritis without bleeding; K29.80 Duodenitis without bleeding; E86.0 Dehydration; E10.43 Type 1 diabetes mellitus with diabetic autonomic (poly)neuropathy; K31.84 Gastroparesis; R11.2 Nausea with vomiting, unspecified; I10 Essential (primary) hypertension; R00.0 Tachycardia, unspecified

== ENCOUNTER 2018-10-03 11:27 | Emergency (ER) | payer MEDICAID ==
[~2018-10-03 11:27] MED LIST changes: +AMOXICILLIN500 M1 PO; +CLARITHROMYCIN500 M1 PO; +DIFLUCAN200 MG PO; +PREVPACK; +PROTONIX40 MG PO
[2018-10-03 11:49] VITALS: BMI 21.5
[2018-10-03 12:16] LABS: HCG URINE NEGATIVE (NEGATIVE)
[2018-10-03 12:26] LABS: APPEARANCE CLEAR (CLEAR); BILIRUBIN NEGATIVE (NEGATIVE); COLOR YELLOW (YELLOW); GLUCOSE 250 mg/dL (NEGATIVE); KETONE LARGE mg/dL (NEGATIVE); NITRITE NEGATIVE (NEGATIVE); PROTEIN 1+ mg/dL (NEGATIVE); UROBILINOGEN NORMAL (NORMAL)
[2018-10-03 12:28] LABS: BACTERIA FEW /hpf (NONE SEEN); EPITHELIAL CELLS 0-5 /hpf (0-5); MUCUS >1+ /lpf (NONE SEEN); RED CELLS - URINE 0-5 /hpf (0-5); WHITE CELLS - URINE 0-5 /hpf (0-5)
[2018-10-03 12:41] LABS: BASOPHILS 0.5 % (0-2); EOSINOPHILS 0.2 % (0-7); HEMATOCRIT 36.1 % (36.0-48.0); HEMOGLOBIN 12.2 g/dL (12-16); IMMATURE GRANULOCYTES 0.2 % (0-5); LYMPHOCYTES 23.3 % (15-50); MCH 27.9 pg (26.0-34.0); MCHC 33.8 g/dL (31.0-37.0); MCV 82.6 fL (80.0-100.0); MEAN PLATELET VOLUME 9.4 fL (7.4-10.4); MONOCYTES 5.6 % (2-11); NEUTROPHILS 70.2 % (40-80); PLATELET COUNT 331 10x3/uL (130-400); RBC 4.37 10x6/uL (4.00-5.40); RDW 12.7 % (11.5-14.5); WBC 6.6 10x3/uL (4.8-10.8)
[2018-10-03 12:51] LABS: KETONE - SERUM SMALL mg/dL (NEGATIVE)
[2018-10-03 13:03] LABS: ALBUMIN 3.9 g/dL (3.4-5.0); ALKALINE PHOSPHATASE 82 U/L (46-116); ALT (SGPT) 30 U/L (10-68); CALC OSMOLALITY 284 mosm/kg (275-300); CALCIUM 9.5 mg/dL (8.5-10.1); CARBON DIOXIDE 20.5 mmol/L (21.0-32.0); CHLORIDE - SERUM 99 mmol/L (98-107); CREATININE - SERUM 0.6 mg/dL (0.6-1.3); POTASSIUM - SERUM 3.6 mmol/L (3.5-5.1); PROTEIN - SERUM 7.5 g/dL (6.4-8.2); SODIUM 137 mmol/L (136-145); UREA NITROGEN 23 mg/dL (7-18); eGFR NON AFRICAN AMERICAN > 90 mL/min (90-120)
[2018-10-03 13:04] LABS: GLUCOSE 222 mg/dL (74-106)
[2018-10-03 13:06] LABS: AMYLASE - SERUM 116 U/L (25-115); LIPASE 122 U/L (73-393); MAGNESIUM - SERUM 1.6 mg/dL (1.8-2.4); TROPONIN-I < 0.017 ng/mL (0.000-0.060)
[2018-10-03] MEDS ORDERED: PHENERGAN25 M1 PO (14:40)
[2018-10-03 15:35] VITALS: BP 112/68
== END 2018-10-03 15:37 | disposition home or self-care (01) ==
LOC: D.ER 11:27
PROVIDERS: Family Medicine
DX: K31.84 Gastroparesis (principal); E11.9 Type 2 diabetes mellitus without complications; Z79.4 Long term (current) use of insulin

== ENCOUNTER 2018-11-26 21:55 | Inpatient (IN) | payer MEDICAID ==
[~2018-11-26] VITALS: Ht 162.6 cm; Wt 56.7 kg
[~2018-11-26 21:55] MED LIST changes: +PHENERGAN25 M1 PO
[2018-11-26 22:22] LABS: BASOPHILS 0.2 % (0-2); EOSINOPHILS 0 % (0-7); HEMATOCRIT 40.3 % (36.0-48.0); HEMOGLOBIN 13.8 g/dL (12-16); IMMATURE GRANULOCYTES 0.2 % (0-5); LYMPHOCYTES 27.9 % (15-50); MCH 28.7 pg (26.0-34.0); MCHC 34.2 g/dL (31.0-37.0); MCV 83.8 fL (80.0-100.0); MEAN PLATELET VOLUME 9.3 fL (7.4-10.4); MONOCYTES 6.2 % (2-11); NEUTROPHILS 65.5 % (40-80); PLATELET COUNT 329 10x3/uL (130-400); RBC 4.81 10x6/uL (4.00-5.40); WBC 9.4 10x3/uL (4.8-10.8)
[2018-11-26 22:29] LABS: APPEARANCE HAZY (CLEAR); BILIRUBIN NEGATIVE (NEGATIVE); COLOR DK YELLOW (YELLOW); GLUCOSE 50 mg/dL (NEGATIVE); KETONE LARGE mg/dL (NEGATIVE); NITRITE NEGATIVE (NEGATIVE); PROTEIN NEGATIVE (NEGATIVE); UROBILINOGEN NORMAL (NORMAL)
[2018-11-26 22:30] LABS: HCG URINE NEGATIVE (NEGATIVE)
[2018-11-26 22:41] LABS: ALBUMIN 4.2 g/dL (3.4-5.0); ALKALINE PHOSPHATASE 86 U/L (46-116); ALT (SGPT) 42 U/L (10-68); BILIRUBIN - TOTAL 1.04 mg/dL (0.2-1.3); CALC OSMOLALITY 282 mosm/kg (275-300); CALCIUM 8.7 mg/dL (8.5-10.1); CARBON DIOXIDE 24.1 mmol/L (21.0-32.0); CHLORIDE - SERUM 99 mmol/L (98-107); CREATININE - SERUM 0.9 mg/dL (0.6-1.3); GLUCOSE 208 mg/dL (74-106); POTASSIUM - SERUM 3.2 mmol/L (3.5-5.1); PROTEIN - SERUM 7.8 g/dL (6.4-8.2); SODIUM 137 mmol/L (136-145); UREA NITROGEN 20 mg/dL (7-18); eGFR NON AFRICAN AMERICAN 84 mL/min (90-120)
[2018-11-26 22:44] LABS: AMYLASE - SERUM 114 U/L (25-115); LIPASE 105 U/L (73-393)
[2018-11-26 22:47] LABS: TROPONIN-I < 0.017 ng/mL (0.000-0.060)
--- NOTE | 2018-11-27 00:55 | NUR ---
RECEIVED REPORT FROM ER NURSE WHO STATES MD SAID TO HOLD OFF ON NGT SINCE ZOFRAN WAS WORKING AND PT DIDNT WANT THE NGT. RECEIVED PT TO ROOM VIA STRETCHER. SEDATED FROM ZOFRAN AND COMPAZINE. NO DISTRESS. REQUIRES FREQUENT PROMPTING TO ANSWER ADMISSION QUESTIONS. V/S STABLE. TEMP SLIGHTLY ELEVATED. NO N/V. STATES LAST BM 2 DAYS AGO. NS BOLUS INFUSING IN LT HAND WITHOUT DIFF AND ZOFRAN DRIP @ 4.7 ML/HR. SR ELEVATED X2. CL IN REACH. RESP EVEN AND NONLABORED. INFORMED OF NPO STATUS AND SHE VERBALIZED UNDERSTANDING.
[2018-11-27 01:32] VITALS: BP 116/77; BMI 21.5
[2018-11-27 04:44] VITALS: BP 114/67
--- NOTE | 2018-11-27 05:17 | NUR ---
HAS BEEN SLEEPING ALL NIGHT. NO N/V NOTED. NO DISTRESS. RESP EVEN AND NONLABORED. CL IN REACH.
--- NOTE | 2018-11-27 06:05 | NUR ---
FSBS 66. PT DROWSY BUT HAS BEEN ALL NIGHT. ANSWERS QUESTIONS APPROPRIATELY. GIVEN GLUCAGON DUE TO NPO STATUS.
--- NOTE | 2018-11-27 06:35 | NUR ---
C/O ABD PAIN AND NAUSEA. NOTIFIED NABIL ROCHA. NEW ORDER NOTED FOR MORPHINE 1MG IVP X1 DOSE. MEDICATED AT THIS TIME. DRY HEAVING.
[2018-11-27 07:26] LABS: ALBUMIN 3.5 g/dL (3.4-5.0); ALKALINE PHOSPHATASE 68 U/L (46-116); ALT (SGPT) 32 U/L (10-68); CALC OSMOLALITY 287 mosm/kg (275-300); CALCIUM 7.8 mg/dL (8.5-10.1); CARBON DIOXIDE 23.1 mmol/L (21.0-32.0); CHLORIDE - SERUM 107 mmol/L (98-107); CREATININE - SERUM 0.8 mg/dL (0.6-1.3); GLUCOSE 211 mg/dL (74-106); PROTEIN - SERUM 6.4 g/dL (6.4-8.2); SODIUM 141 mmol/L (136-145); UREA NITROGEN 15 mg/dL (7-18); eGFR NON AFRICAN AMERICAN > 90 mL/min (90-120)
[2018-11-27 07:28] LABS: HEMATOCRIT 35.1 % (36.0-48.0); HEMOGLOBIN 11.9 g/dL (12-16); MCH 28.5 pg (26.0-34.0); MCHC 33.9 g/dL (31.0-37.0); MEAN PLATELET VOLUME 9.4 fL (7.4-10.4); PLATELET COUNT 302 10x3/uL (130-400); RBC 4.18 10x6/uL (4.00-5.40)
[2018-11-27 07:29] LABS: POTASSIUM - SERUM 2.7 mmol/L (3.5-5.1)
[2018-11-27 07:44] LABS: WBC 6.6 10x3/uL (4.8-10.8)
[2018-11-27 07:52] VITALS: BP 117/78
[2018-11-27 09:52] LABS: LYMPHOCYTES 58 % (15-50); MONOCYTES 12 % (2-11); NEUTROPHILS 28 % (40-80)
[2018-11-27 09:57] LABS: PLATELET ESTIMATE NORMAL; ROULEAUX OCC
--- NOTE | 2018-11-27 10:21 | NUR ---
PT RESTING IN BED. NO SIGNS OF DISTRESS. IV TO LEFT HAND PATENT NO REDNESS OR TENDERNESS. ON TELEMETRY 86 SR. COMPLAINS OF UNCOMFORTABLENESS. DENIES ANY OTHER NEED AT THIS TIME. CALL LIGHT IN REACH. BED LOW POSITION. NO FAMILY AT BEDSIDE AT THIS TIME.
[2018-11-27 11:24] LABS: % SATURATION 36 % (15-55); IRON 120 ug/dl (35-150); TOTAL IRON BIND CAPACITY 326 ug/dl (260-445); UNSAT IRON BIND CAPACITY 206 ug/dl (150-375)
[2018-11-27 11:36] LABS: UDS - AMPHET NEGATIVE QUAL (NEGATIVE); UDS - BARB NEGATIVE QUAL (NEGATIVE); UDS - BENZO NEGATIVE QUAL (NEGATIVE); UDS - COCAINE NEGATIVE QUAL (NEGATIVE); UDS - OPIATE NEGATIVE QUAL (NEGATIVE); UDS - PCP NEGATIVE QUAL (NEGATIVE); UDS - THC POSITIVE QUAL (NEGATIVE)
[2018-11-27 12:20] LABS: FERRITIN 118 ng/mL (3-244)
[2018-11-27 15:11] VITALS: Ht 162.6 cm; Wt 56.7 kg
--- NOTE | 2018-11-27 19:10 | NUR ---
BEDSIDE REPORT RECEIVED FROM DAY SHIFT, PT CARE ASSUMED. PT LYING IN BED, AAOX4, DENIES PAIN, N/V, OTHER NEEDS AT THIS TIME. BED IN LOWEST POSITION, SR X2, CALL LIGHT WITHIN REACH. WILL CONTINUE TO MONITOR.
[2018-11-27 20:10] VITALS: BP 121/89
--- NOTE | 2018-11-27 20:42 | NUR ---
PT SITTING UP IN BED, C/O NAUSEA. NIGHT TIME MEDS AND ZOFRAN ADMINISTERED PER ORDER. FSBS 72, NO HUMULIN ADMINISTERED, PER SLIDING SCALE. 25 UNITS LANTUS ADMINISTERED SUBCUTANEOUS TO RIGHT ARM. DENIES PAIN AND OTHER NEEDS AT THIS TIME, BED IN LOWEST POSITION, SR X2, CALL LIGHT WITHIN REACH. WILL CONTINUE TO MONITOR.
[2018-11-28 04:30] VITALS: BP 121/75
[2018-11-28 06:42] LABS: BASOPHILS 0.3 % (0-2); EOSINOPHILS 0.6 % (0-7); HEMATOCRIT 32.8 % (36.0-48.0); HEMOGLOBIN 11.3 g/dL (12-16); IMMATURE GRANULOCYTES 0.1 % (0-5); LYMPHOCYTES 53.6 % (15-50); MCH 28.5 pg (26.0-34.0); MCHC 34.5 g/dL (31.0-37.0); MCV 82.8 fL (80.0-100.0); MEAN PLATELET VOLUME 9.2 fL (7.4-10.4); MONOCYTES 5.8 % (2-11); NEUTROPHILS 39.6 % (40-80); PLATELET COUNT 262 10x3/uL (130-400); RBC 3.96 10x6/uL (4.00-5.40); RDW 11.7 % (11.5-14.5); WBC 7.8 10x3/uL (4.8-10.8)
[2018-11-28 07:11] LABS: CALCIUM 7.9 mg/dL (8.5-10.1); CARBON DIOXIDE 19.4 mmol/L (21.0-32.0); CHLORIDE - SERUM 110 mmol/L (98-107); CREATININE - SERUM 0.6 mg/dL (0.6-1.3); POTASSIUM - SERUM 3.3 mmol/L (3.5-5.1); SODIUM 142 mmol/L (136-145); eGFR NON AFRICAN AMERICAN > 90 mL/min (90-120)
[2018-11-28 07:14] LABS: CALC OSMOLALITY 278 mosm/kg (275-300); GLUCOSE 55 mg/dL (74-106); UREA NITROGEN 7 mg/dL (7-18)
--- NOTE | 2018-11-28 07:25 | NUR ---
NOTIFIED BY LAW OF LOW GLUCOSE OF 55, PROVIDED PT WITH TWO APPLE JUICES AT THIS TIME. PT A/O X4, RESP EVEN AND NONLABORED ON RA. VITALS SIGNS STABLE. LT FA IV INFUSING NS AT 50CC/HR. PT DENIES ANY NEEDS AT THIS TIME. BEDSIDE RAILS X2, CALL LIGHT IN REACH, NAD NOTED, WILL CONTINUE PLAN OF CARE.
[2018-11-28 07:30] VITALS: BP 127/75
--- NOTE | 2018-11-28 08:30 | NUR ---
GAVE 40MEQ OF K FOR LOW K OF 3.3, PT REFUSED NICOTINE PATCH. RECHECKED BLOOD SUGAR AND NOW IS 132. PT ASKING IF SHE IS GOING HOME TODAY. INFORMED PT THAT GEL COAT SPRAYER IS GOING TO LOOK AT ALL HER LABS AND DECIDE IF SHE CAN GO HOME TODAY. PT DENIES ANY OTHER NEEDS AT THIS TIME. CALL LIGHT IN REACH, NAD NOTED, WILL CONTINUE TO MONITOR.
--- NOTE | 2018-11-28 12:21 | NUR ---
NOTIFIED FRANCHESKA QUEZADA APRN THAT PT DOES NOT WANT TO EAT HER LUNCH THAT PT STATED THAT SHE IS NOT HUNGRY AND ALSO DOES NOT LIKE WHAT SHE WAS SERVED, THAT SHE WANTS TO WAIT UNTIL SHE GETS HOME TO EAT. FRANCHESKA STATED OK THAT PT COULD STILL BE D/C TODAY.
--- NOTE | 2018-11-28 12:53 | NUR ---
PROVIDED VERBAL AND WRITTEN DISCHARGE TEACHING TO PT WHO VERBALIZED UNDERSTANDING REGARDING TEACHING. D/C LT HAND IV WITH CATHETER TIP INTACT. PT LEFT UNIT VIA WHEELCHAIR, WITH ALL BELONGINGS, ACCOMPANIED BY MALE FRIEND, NAD NOTED.
--- NOTE | 2018-11-30 16:27 | MORECARE ---
CASE MANAGEMENT DISCHARGE SUMMARY PATIENT: SABINE OMER UNIT: [id number] ADM DATE: 11/26/18 AGE: 23 : [birth year] SEX: F ROOM/BED: D.1205 AUTHOR: GLENN GE PHYSICIAN: REFERRING PHYSICIAN: KENAN TUBBS MD DATE OF SERVICE: 11/30/18 Discharge Plan Patient Name: SABINE OMER [facility] [facility] 1995 Planned Disposition: Home Anticipated Discharge Date: Discharge Date: 11/28/2018 Expected LOS: Initial Reviewer: [email or web address] Initial Review Date: 11/27/2018 Generated: 11/30/18 5:26 pm Patient Name: SABINE OMER Page [id number] at 1627 All edits/amendments must be made on the electronic document DICTATION DATE: 11/30/18 1626 BAG SHOP WORKER: ROSLYN 11/30/18 1626 RPT#: [id number] DC DATE:11/28/18 STATUS: DIS IN [facility] [address] [place] [address] END OF REPORT
== END 2018-11-28 13:13 | disposition home or self-care (01) | DRG 74 ==
LOC: D.ER 21:55 → D.M3 23:08
PROVIDERS: Family Medicine; ADMIT Internal Medicine Nephrology; ATTEND Internal Medicine Nephrology
DX: E10.43 Type 1 diabetes mellitus with diabetic autonomic (poly)neuropathy (principal); N17.9 Acute kidney failure, unspecified; F17.213 Nicotine dependence, cigarettes, with withdrawal; K31.84 Gastroparesis; K82.8 Other specified diseases of gallbladder; D64.9 Anemia, unspecified; E87.6 Hypokalemia

== ENCOUNTER 2019-08-24 14:53 | Emergency (ER) | payer MEDICAID ==
[~2019-08-24] VITALS: Ht 162.6 cm; Wt 56.8 kg
[2019-08-24 15:14] VITALS: Ht 162.6 cm; Wt 56.8 kg
[2019-08-24 15:57] LABS: BASOPHILS 0.2 % (0-2); EOSINOPHILS 0.1 % (0-7); HEMATOCRIT 39.8 % (36.0-48.0); HEMOGLOBIN 12.8 g/dL (12-16); IMMATURE GRANULOCYTES 0.2 % (0-5); LYMPHOCYTES 20.9 % (15-50); MCH 28.2 pg (26.0-34.0); MCHC 32.2 g/dL (31.0-37.0); MCV 87.7 fL (80.0-100.0); MEAN PLATELET VOLUME 9.7 fL (7.4-10.4); NEUTROPHILS 72.6 % (40-80); RBC 4.54 10x6/uL (4.00-5.40); RDW 12.3 % (11.5-14.5); WBC 9.6 10x3/uL (4.8-10.8)
[2019-08-24 16:03] LABS: PLATELET COUNT 320 10x3/uL (130-400)
[2019-08-24 16:07] LABS: BILIRUBIN NEGATIVE (NEGATIVE); GLUCOSE 1000 mg/dL (NEGATIVE); HCG URINE NEGATIVE (NEGATIVE); KETONE LARGE mg/dL (NEGATIVE); NITRITE NEGATIVE (NEGATIVE); UROBILINOGEN NORMAL (NORMAL)
[2019-08-24 16:13] LABS: CALC OSMOLALITY 291 mosm/kg (275-300); CALCIUM 8.9 mg/dL (8.5-10.1); CARBON DIOXIDE 29.5 mmol/L (21.0-32.0); CHLORIDE - SERUM 101 mmol/L (98-107); CREATININE - SERUM 0.9 mg/dL (0.6-1.3); POTASSIUM - SERUM 3.4 mmol/L (3.5-5.1); SODIUM 141 mmol/L (136-145); UREA NITROGEN 22 mg/dL (7-18); eGFR NON AFRICAN AMERICAN 83 mL/min (90-120)
[2019-08-24 16:14] LABS: GLUCOSE 238 mg/dL (74-106)
[2019-08-24 16:18] LABS: ALBUMIN 3.9 g/dL (3.4-5.0); ALKALINE PHOSPHATASE 86 U/L (30-120); ALT (SGPT) 56 U/L (10-68); AMYLASE - SERUM 115 U/L (25-115); BILIRUBIN - TOTAL 1.02 mg/dL (0.2-1.3); LIPASE 91 U/L (73-393); PROTEIN - SERUM 7.5 g/dL (6.4-8.2)
[2019-08-24 19:59] VITALS: BP 144/97
== END 2019-08-24 19:59 | disposition home or self-care (01) ==
LOC: D.ER 14:53
PROVIDERS: Family Medicine
DX: R11.15 Cyclical vomiting syndrome unrelated to migraine (principal); E86.0 Dehydration; E11.9 Type 2 diabetes mellitus without complications; Z79.4 Long term (current) use of insulin; R10.9 Unspecified abdominal pain

== ENCOUNTER 2020-02-12 02:15 | Emergency (ER) | payer MEDICAID ==
[~2020-02-12] VITALS: Ht 162.6 cm; Wt 54.1 kg
[2020-02-12 02:30] VITALS: Ht 162.6 cm; Wt 54.1 kg
[2020-02-12 03:00] LABS: BASOPHILS 0.1 % (0-2); EOSINOPHILS 0 % (0-7); HEMATOCRIT 39.5 % (36.0-48.0); HEMOGLOBIN 12.9 g/dL (12-16); IMMATURE GRANULOCYTES 0.6 % (0-5); LYMPHOCYTES 15.3 % (15-50); MCH 28.4 pg (26.0-34.0); MCHC 32.7 g/dL (31.0-37.0); MEAN PLATELET VOLUME 9.2 fL (7.4-10.4); MONOCYTES 1.8 % (2-11); NEUTROPHILS 82.2 % (40-80); RBC 4.54 10x6/uL (4.00-5.40); RDW 12.1 % (11.5-14.5); WBC 9.4 10x3/uL (4.8-10.8)
[2020-02-12 03:01] LABS: PLATELET COUNT 429 10x3/uL (130-400)
[2020-02-12 03:12] LABS: BILIRUBIN NEGATIVE (NEGATIVE); KETONE NEGATIVE (NEGATIVE); NITRITE NEGATIVE (NEGATIVE)
[2020-02-12 03:13] LABS: BACTERIA FEW HPF (NONE SEEN); EPITHELIAL CELLS 0-5 /hpf (0-5); WHITE CELLS - URINE 3 HPF (0-4)
[2020-02-12 03:14] LABS: HCG SERUM NEGATIVE (NEGATIVE)
[2020-02-12 03:26] LABS: CALC OSMOLALITY 288 mosm/kg (275-300); CARBON DIOXIDE 27.7 mmol/L (21.0-32.0); CHLORIDE - SERUM 97 mmol/L (98-107); GLUCOSE 219 mg/dL (74-106); POTASSIUM - SERUM 3.8 mmol/L (3.5-5.1); SODIUM 140 mmol/L (136-145); UREA NITROGEN 20 mg/dL (7-18); eGFR NON AFRICAN AMERICAN 73 mL/min (90-120)
[2020-02-12 03:33] LABS: ALKALINE PHOSPHATASE 128 U/L (30-120); ALT (SGPT) 36 U/L (10-68); AMYLASE - SERUM 103 U/L (25-115); BILIRUBIN - TOTAL 0.57 mg/dL (0.2-1.3); LIPASE 41 U/L (73-393); PROTEIN - SERUM 8.6 g/dL (6.4-8.2); TROPONIN-I < 0.017 ng/mL (0.000-0.060)
[2020-02-12 04:17] LABS: UDS - AMPHET NEGATIVE QUAL (NEGATIVE); UDS - BARB NEGATIVE QUAL (NEGATIVE); UDS - BENZO NEGATIVE QUAL (NEGATIVE); UDS - COCAINE NEGATIVE QUAL (NEGATIVE); UDS - OPIATE NEGATIVE QUAL (NEGATIVE); UDS - PCP NEGATIVE QUAL (NEGATIVE); UDS - THC POSITIVE QUAL (NEGATIVE)
[2020-02-12] MEDS ORDERED: ZOFRAN4 MG PO (05:30)
[2020-02-12 06:11] VITALS: BP 136/92
[2020-02-12] MEDS ORDERED: COMPAZINE25 MG RC (14:24)
[2020-02-12] MEDS ORDERED: ZOFRAN ODT4 MG/UDTAB PO (14:31)
[2020-02-12] MEDS ORDERED: PHENERGAN6.25 MG/5 PO (14:31)
[2020-02-13] MEDS ORDERED: ZOFRAN ODT4 MG/UDTAB PO (09:27)
== END 2020-02-12 06:11 | disposition home or self-care (01) ==
LOC: D.ER 02:15
PROVIDERS: Family Medicine
DX: K31.84 Gastroparesis (principal); R11.15 Cyclical vomiting syndrome unrelated to migraine; E10.9 Type 1 diabetes mellitus without complications; Z79.4 Long term (current) use of insulin

== ENCOUNTER 2020-02-12 11:44 | Observation (INO) | payer MEDICAID ==
[~2020-02-12] VITALS: Ht 162.6 cm; Wt 54.1 kg
[~2020-02-12 11:44] MED LIST changes: +ZOFRAN4 MG PO
[2020-02-12 11:49] VITALS: Ht 162.6 cm; Wt 54.1 kg
[2020-02-12 12:13] LABS: BASOPHILS 0.1 % (0-2); EOSINOPHILS 0.1 % (0-7); HEMATOCRIT 39.5 % (36.0-48.0); HEMOGLOBIN 12.9 g/dL (12-16); IMMATURE GRANULOCYTES 0.5 % (0-5); LYMPHOCYTES 17.8 % (15-50); MCH 28.7 pg (26.0-34.0); MCHC 32.7 g/dL (31.0-37.0); MCV 87.8 fL (80.0-100.0); MONOCYTES 5.6 % (2-11); NEUTROPHILS 75.9 % (40-80); PLATELET COUNT 434 10x3/uL (130-400); RDW 12.2 % (11.5-14.5)
[2020-02-12 12:14] LABS: WBC 12.7 10x3/uL (4.8-10.8)
[2020-02-12 12:22] LABS: CALCIUM 9.6 mg/dL (8.5-10.1); CHLORIDE - SERUM 97 mmol/L (98-107); CREATININE - SERUM 0.9 mg/dL (0.6-1.3); POTASSIUM - SERUM 3.8 mmol/L (3.5-5.1); SODIUM 137 mmol/L (136-145); UREA NITROGEN 18 mg/dL (7-18); eGFR NON AFRICAN AMERICAN 83 mL/min (90-120)
[2020-02-12 12:25] LABS: CALC OSMOLALITY 289 mosm/kg (275-300); CARBON DIOXIDE 20.7 mmol/L (21.0-32.0); GLUCOSE 343 mg/dL (74-106)
[2020-02-12 12:32] LABS: ALBUMIN 3.9 g/dL (3.4-5.0); ALKALINE PHOSPHATASE 125 U/L (30-120); ALT (SGPT) 27 U/L (10-68); AMYLASE - SERUM 98 U/L (25-115); BILIRUBIN - TOTAL 0.62 mg/dL (0.2-1.3); PROTEIN - SERUM 8.2 g/dL (6.4-8.2)
[2020-02-12 12:37] LABS: LIPASE 48 U/L (73-393); TROPONIN-I < 0.017 ng/mL (0.000-0.060)
--- NOTE | 2020-02-12 12:40 | NUR ---
PT REFUSED CT SCAN. STATES "I KNOW WHATS WRONG"
[2020-02-12] MEDS ORDERED: COMPAZINE25 MG RC (14:24)
--- NOTE | 2020-02-12 14:26 | NUR ---
PT PROVIDED URINE SAMPLE
[2020-02-12] MEDS ORDERED: PHENERGAN6.25 MG/5 PO (14:31)
[2020-02-12] MEDS ORDERED: ZOFRAN ODT4 MG/UDTAB PO (14:31)
[2020-02-12 14:33] LABS: HCG URINE NEGATIVE (NEGATIVE)
[2020-02-12 14:45] LABS: BILIRUBIN NEGATIVE (NEGATIVE); KETONE LARGE mg/dL (NEGATIVE); NITRITE NEGATIVE (NEGATIVE); UROBILINOGEN NORMAL mg/dL (< 2)
[2020-02-12 17:32] VITALS: BP 106/65
--- NOTE | 2020-02-12 17:32 | NUR ---
PT LAYING IN BED. NO DISTRESS NOTED. RESPIRATIONS ARE EVEN AND UNLABORED. WILL CONTINUE TO MONITOR.
--- NOTE | 2020-02-12 18:50 | NUR ---
PT DENIES NAUSEA/VOMITING AT THIS TIME.
[2020-02-12 18:51] VITALS: BP 83/39
[2020-02-12 20:00] VITALS: BP 115/72
--- NOTE | 2020-02-12 20:00 | NUR ---
PATIENT CRYING OUT IN PAIN, READJUSTED POSITION, ENCOURAGED TO RELAX, SHE IS MUCH BETTER, CALL LIGHT WITHIN REACH.
[2020-02-12 20:52] VITALS: BP 101/69
--- NOTE | 2020-02-12 21:30 | NUR ---
RESTING QUIETLY ON STRETCHER, STATES SHE IS FEELING BETTER, ABD PAIN A 4 ON PAIN SCALE.
[2020-02-12 22:00] VITALS: BP 115/71
[2020-02-12 23:30] VITALS: BP 101/52
[2020-02-13 00:30] VITALS: BP 111/77
[2020-02-13 01:16] LABS: CARBON DIOXIDE 18.4 mmol/L (21.0-32.0); CHLORIDE - SERUM 106 mmol/L (98-107); CREATININE - SERUM 0.8 mg/dL (0.6-1.3); POTASSIUM - SERUM 3.8 mmol/L (3.5-5.1); SODIUM 142 mmol/L (136-145); UREA NITROGEN 16 mg/dL (7-18); eGFR NON AFRICAN AMERICAN > 90 mL/min (90-120)
[2020-02-13 01:17] LABS: CALC OSMOLALITY 289 mosm/kg (275-300); GLUCOSE 204 mg/dL (74-106)
[2020-02-13 01:24] LABS: CALCIUM 7.9 mg/dL (8.5-10.1)
[2020-02-13 02:15] VITALS: BP 108/62
[2020-02-13 05:54] LABS: BASOPHILS 0.3 % (0-2); EOSINOPHILS 0.1 % (0-7); HEMATOCRIT 37.9 % (36.0-48.0); IMMATURE GRANULOCYTES 0.4 % (0-5); LYMPHOCYTES 24.1 % (15-50); MCH 28.2 pg (26.0-34.0); MCHC 31.7 g/dL (31.0-37.0); MCV 89.2 fL (80.0-100.0); MONOCYTES 7.6 % (2-11); NEUTROPHILS 67.5 % (40-80); PLATELET COUNT 459 10x3/uL (130-400); RBC 4.25 10x6/uL (4.00-5.40); RDW 12.5 % (11.5-14.5)
[2020-02-13 06:04] LABS: APTT 25.6 SECONDS (22.8-39.4); INR 1.05 (0.85-1.17); PROTIME 13.6 SECONDS (11.6-15.0)
[2020-02-13 06:21] LABS: CALC OSMOLALITY 284 mosm/kg (275-300); CALCIUM 8.7 mg/dL (8.5-10.1); CARBON DIOXIDE 22.3 mmol/L (21.0-32.0); CHLORIDE - SERUM 106 mmol/L (98-107); CREATININE - SERUM 0.8 mg/dL (0.6-1.3); PHOSPHOROUS 2.7 mg/dL (2.5-4.9); POTASSIUM - SERUM 3.6 mmol/L (3.5-5.1); SODIUM 143 mmol/L (136-145); THYROID STIMULATING HORMONE 0.76 uIU/mL (0.36-3.74); UREA NITROGEN 14 mg/dL (7-18); eGFR NON AFRICAN AMERICAN > 90 mL/min (90-120)
[2020-02-13 06:27] LABS: GLUCOSE 82 mg/dL (74-106)
--- NOTE | 2020-02-13 07:53 | NUR ---
PT LAYING IN BED. NO DISTRESS NOTED. PT VOICES NO COMPLAINTS AT THIS TIME. RESPIRATIONS ARE EVEN AND UNLABORED. WILL CONTINUE TO MONITOR.
[2020-02-13] MEDS ORDERED: ZOFRAN ODT4 MG/UDTAB PO (09:27)
--- NOTE | 2020-02-13 09:31 | NUR ---
ZOFRAN DRIP STOPPED AT THIS TIME.
--- NOTE | 2020-02-13 11:03 | NUR ---
PT REPORTS THAT SHE HAS HAD NO VOMITING. OK TO D/C.
[2020-02-13 11:40] VITALS: BP 153/97
[2020-02-13 11:46] VITALS: BP 153/97
--- NOTE | 2020-02-13 11:46 | NUR ---
normal saline stopped at this time.
== END 2020-02-13 11:00 | disposition home or self-care (01) ==
LOC: D.ER 11:44 → OBSVTIME 15:46 → D.EDHOLD 15:46 → D.ER 15:46 → D.EDHOLD 02-13 11:00
PROVIDERS: Family Medicine; ADMIT Emergency Medicine; ATTEND Emergency Medicine
DX: E11.43 Type 2 diabetes mellitus with diabetic autonomic (poly)neuropathy (principal); R11.15 Cyclical vomiting syndrome unrelated to migraine; E86.0 Dehydration; E11.65 Type 2 diabetes mellitus with hyperglycemia; K31.84 Gastroparesis; F17.200 Nicotine dependence, unspecified, uncomplicated; F17.203 Nicotine dependence unspecified, with withdrawal

== ENCOUNTER 2020-02-16 01:13 | Emergency (ER) | payer MEDICAID ==
[~2020-02-16] VITALS: Ht 162.6 cm; Wt 54.5 kg
[~2020-02-16 01:13] MED LIST changes: +COMPAZINE25 MG RC; +PHENERGAN6.25 MG/5 PO; +ZOFRAN ODT4 MG/UDTAB PO
[2020-02-16 01:18] VITALS: Ht 162.6 cm; Wt 54.5 kg
[2020-02-16 01:56] LABS: UDS - AMPHET NEGATIVE QUAL (NEGATIVE); UDS - BARB NEGATIVE QUAL (NEGATIVE); UDS - BENZO NEGATIVE QUAL (NEGATIVE); UDS - COCAINE NEGATIVE QUAL (NEGATIVE); UDS - OPIATE NEGATIVE QUAL (NEGATIVE); UDS - PCP NEGATIVE QUAL (NEGATIVE); UDS - THC POSITIVE QUAL (NEGATIVE)
[2020-02-16 01:57] LABS: BASOPHILS 0.5 % (0-2); EOSINOPHILS 0.3 % (0-7); HEMATOCRIT 41.1 % (36.0-48.0); HEMOGLOBIN 13.7 g/dL (12-16); IMMATURE GRANULOCYTES 0.5 % (0-5); MCH 28.3 pg (26.0-34.0); MCHC 33.3 g/dL (31.0-37.0); MCV 84.9 fL (80.0-100.0); MONOCYTES 8.9 % (2-11); NEUTROPHILS 58.8 % (40-80); PLATELET COUNT 513 10x3/uL (130-400); RBC 4.84 10x6/uL (4.00-5.40); RDW 11.8 % (11.5-14.5); WBC 13.2 10x3/uL (4.8-10.8)
[2020-02-16 02:04] LABS: HCG URINE NEGATIVE (NEGATIVE)
[2020-02-16 02:07] LABS: CALC OSMOLALITY 271 mosm/kg (275-300); CALCIUM 9.4 mg/dL (8.5-10.1); CARBON DIOXIDE 23.3 mmol/L (21.0-32.0); CHLORIDE - SERUM 100 mmol/L (98-107); CREATININE - SERUM 0.8 mg/dL (0.6-1.3); GLUCOSE 105 mg/dL (74-106); POTASSIUM - SERUM 3.6 mmol/L (3.5-5.1); SODIUM 136 mmol/L (136-145); UREA NITROGEN 13 mg/dL (7-18); eGFR NON AFRICAN AMERICAN > 90 mL/min (90-120)
[2020-02-16 02:10] LABS: ALBUMIN 3.7 g/dL (3.4-5.0); ALKALINE PHOSPHATASE 115 U/L (30-120); ALT (SGPT) 12 U/L (10-68); BILIRUBIN - TOTAL 0.45 mg/dL (0.2-1.3); LIPASE 64 U/L (73-393); PROTEIN - SERUM 7.7 g/dL (6.4-8.2)
[2020-02-16 02:12] LABS: NITRITE NEGATIVE (NEGATIVE)
[2020-02-16 02:13] LABS: BILIRUBIN NEGATIVE (NEGATIVE); KETONE LARGE mg/dL (NEGATIVE); UROBILINOGEN NORMAL mg/dL (< 2)
[2020-02-16 02:14] LABS: BACTERIA MODERATE HPF (NONE SEEN); EPITHELIAL CELLS 0-5 /hpf (0-5); WHITE CELLS - URINE 0-5 HPF (0-4)
[2020-02-16 03:51] VITALS: BP 122/74
== END 2020-02-16 03:52 | disposition home or self-care (01) ==
LOC: D.ER 01:13
PROVIDERS: Family Medicine
DX: R10.9 Unspecified abdominal pain (principal); G89.29 Other chronic pain; E11.9 Type 2 diabetes mellitus without complications; Z79.4 Long term (current) use of insulin